=== PATIENT | male | born 1960 | race Caucasian/White ===

== ENCOUNTER 2018-08-16 18:19 | Emergency (ER) | payer OTHER ==
--- NOTE | 2018-08-16 18:30 | ER Report ---
History and Physical Time Seen By MD: 18:29 HPI/ROS CHIEF COMPLAINT: Abdominal pain, no bowel movement since HISTORY OF PRESENT ILLNESS: Patient is a 58-year-old male here with complaints of constipation, abdominal cramping with last bowel movement reported to be on . Patient denies prior history of bowel obstructions. Patient did take magnesium citrate today without relief. Patient is tolerating oral intake without issues. He does have some nausea without vomiting. Denies fevers or chills REVIEW OF SYSTEMS: Constitutional: No fever, no chills. Eyes: No discharge. ENT: No sore throat. Cardiovascular: No chest pain, no palpitations. Respiratory: No cough, no shortness of breath. Gastrointestinal: + Diffuse cramping abdominal pain without rebound or guarding, no vomiting.+ Nausea Genitourinary: No hematuria. Musculoskeletal: No back pain. Skin: No rashes. Neurological: No headache. Allergies: Coded Allergies: No Known Drug Allergies (Unverified , 08/16/18) Home Meds Reported Medications Multivitamin (DAILY VITAMIN) 1 Each Tablet, 1 EACH PO DAILY 01/04/13 Hx Smoking: No Hx Substance Use Disorder: No Hx Alcohol Use: No Constitutional Vital Sign - Last 24 Hours 08/16/18 08/16/18 08/16/18 08/16/18 18:26 18:29 18:35 18:49 Temp 98.3 Pulse 77 70 Resp 20 B/P (MAP) 152/85 152/85 (107) 146/101 (116) Pulse Ox 88 88 O2 Delivery Room Air 08/16/18 08/16/18 08/16/18 08/16/18 19:00 19:30 19:49 20:00 Pulse 75 77 B/P (MAP) 151/98 (115) 152/96 (114) 150/102 (118) Pulse Ox 89 90 08/16/18 08/16/18 08/16/18 08/16/18 20:00 20:21 20:21 22:03 B/P (MAP) 150/102 (118) 160/87 (111) 160/87 (111) 150/97 (114) Pulse Ox 88 Physical Exam General Appearance: The patient is alert, has no immediate need for airway protection and no signs of toxicity. No acute distress Eyes: Pupils equal and round no pallor or injection. ENT, Mouth: Mucous membranes are moist. Respiratory: There are no retractions, lungs are clear to auscultation. Cardiovascular: Regular rate and rhythm. Gastrointestinal: Abdomen is soft + mild diffuse tenderness on palpation without rebound or guarding Neurological: No focal neurological deficits Skin: Warm and dry, no rashes. Musculoskeletal: Neck is supple non tender. Extremities are nontender, nonswollen and have full range of motion. DIFFERENTIAL DIAGNOSIS: After history and physical exam differential diagnosis was considered for abdominal pain including but not limited to appendicitis, cholecystitis, gastritis and urinary tract infection. Constipation, bowel obst ruction Medical Decision Making Data Points Result Diagram: 08/16/18 1833 08/16/18 1833 Laboratory Hematology Test 08/16/18 18:33 08/16/18 19:02 Red Blood Count 5.95 M/uL (4.00-5.60) Mean Corpuscular Volume 87.3 fL (80.0-96.0) Mean Corpuscular Hemoglobin 29.5 pg (26.0-33.0) Mean Corpuscular Hemoglobin Concent 33.8 g/dL (32.0-36.0) Red Cell Distribution Width 13.2 % (11.5-14.5) Mean Platelet Volume 8.1 fL (7.2-11.1) Neutrophils (%) (Auto) 61.8 % (39.4-72.5) Lymphocytes (%) (Auto) 21.8 % (17.6-49.6) Monocytes (%) (Auto) 14.2 % (4.1-12.4) Eosinophils (%) (Auto) 1.6 % (0.4-6.7) Basophils (%) (Auto) 0.6 % (0.3-1.4) Nucleated RBC Relative Count (auto) 0.1 /100WBC Neutrophils # (Auto) 3.3 K/uL (2.0-7.4) Lymphocytes # (Auto) 1.2 K/uL (1.3-3.6) Monocytes # (Auto) 0.8 K/uL (0.3-1.0) Eosinophils # (Auto) 0.1 K/uL (0.0-0.5) Basophils # (Auto) 0.0 K/uL (0.0-0.1) Nucleated RBC Absolute Count (auto) 0.01 K/uL Sodium Level 141 mmol/L (137-145) Potassium Level 4.0 mmol/L (3.5-5.0) Chloride Level 103 mmol/L (98-107) Carbon Dioxide Level 27 mmol/L (22-30) Blood Urea Nitrogen 10 mg/dl (9-21) Creatinine 1.00 mg/dl (0.66-1.25) Glomerular Filtration Rate Calc > 60.0 Random Glucose 88 mg/dl (75-110) Calcium Level 9.3 mg/dl (8.4-10.2) Total Bilirubin 1.1 mg/dl (0.2-1.3) Aspartate Amino Transf (AST/SGOT) 24 U/L (0-35) Alanine Aminotransferase (ALT/SGPT) 28 U/L (0-56) Alkaline Phosphatase 77 U/L (0-126) Total Protein 7.6 g/dl (6.3-8.2) Albumin 4.7 g/dl (3.5-5.0) Lipase 56 U/L (23-300) Lactate 0.8 mmol/L (0.7-2.1) Chemistry Test 08/16/18 18:33 08/16/18 19:02 White Blood Count 5.4 k/uL (4.5-11.0) Red Blood Count 5.95 M/uL (4.00-5.60) Hemoglobin 17.6 g/dL (14.0-18.0) Hematocrit 51.9 % (42.0-52.0) Mean Corpuscular Volume 87.3 fL (80.0-96.0) Mean Corpuscular Hemoglobin 29.5 pg (26.0-33.0) Mean Corpuscular Hemoglobin Concent 33.8 g/dL (32.0-36.0) Red Cell Distribution Width 13.2 % (11.5-14.5) Platelet Count 301 K/uL (150-450) Mean Platelet Volume 8.1 fL (7.2-11.1) Neutrophils (%) (Auto) 61.8 % (39.4-72.5) Lymphocytes (%) (Auto) 21.8 % (17.6-49.6) Monocytes (%) (Auto) 14.2 % (4.1-12.4) Eosinophils (%) (Auto) 1.6 % (0.4-6.7) Basophils (%) (Auto) 0.6 % (0.3-1.4) Nucleated RBC Relative Count (auto) 0.1 /100WBC Neutrophils # (Auto) 3.3 K/uL (2.0-7.4) Lymphocytes # (Auto) 1.2 K/uL (1.3-3.6) Monocytes # (Auto) 0.8 K/uL (0.3-1.0) Eosinophils # (Auto) 0.1 K/uL (0.0-0.5) Basophils # (Auto) 0.0 K/uL (0.0-0.1) Nucleated RBC Absolute Count (auto) 0.01 K/uL Glomerular Filtration Rate Calc > 60.0 Calcium Level 9.3 mg/dl (8.4-10.2) Total Bilirubin 1.1 mg/dl (0.2-1.3) Aspartate Amino Transf (AST/SGOT) 24 U/L (0-35) Alanine Aminotransferase (ALT/SGPT) 28 U/L (0-56) Alkaline Phosphatase 77 U/L (0-126) Total Protein 7.6 g/dl (6.3-8.2) Albumin 4.7 g/dl (3.5-5.0) Lipase 56 U/L (23-300) Lactate 0.8 mmol/L (0.7-2.1) EKG/Imaging Imaging Location: [facility] - [place] Patient: Taurus Baum : 1960 Visit/Account:[id number] [facility] [place] [facility] EXAMINATION: CT abdomen and pelvis with IV contrast HISTORY: Abdominal pain. No bowel movement for one week. Possible bowel obstru ction. TECHNIQUE: Axial CT images of the abdomen and pelvis were obtained with IV contrast, with coronal and sagittal 2D reconstructed images. One of the following dose optimization techniques was utilized in the performance of this exam: Automated exposure control; adjustment of the mA and/or kV according to the patient's size; or use of an iterative reconstruction technique. Specific details can be referenced in the facility's radiology CT exam operational policy. Contrast: 75 mL of IV Isovue-370. COMPARISON: None. FINDINGS: Liver: Negative. Gallbladder and bile ducts: Negative. Spleen: Negative. Pancreas: Negative. Adrenal glands: Negative. Kidneys: No urinary calculi or hydronephrosis. The kidneys enhance normally. A subcentimeter hypodensity in the right kidney likely represents a small cyst. Bowel and peritoneum: There is a large amount of stool along the descending and sigmoid colon. The distal sigmoid colon measures 5.2 cm with some hard-appearing stool. No wall thickening or CT evidence of an underlying obstructing lesion. There is mild dilatation of the transverse and descending colon. The transverse colon measures 6.1 cm with layering liquid stool and air. The proximal descending colon measures up to 6.0 cm with layering liquid stool and air. The right colon is normal in caliber with a moderate amount of liquid stool. Small bowel loops are normal in caliber. No free fluid or free intraperitoneal air. Pelvic structures: Negative. Lymph node assessment: Negative. Vessels: Negative. Musculoskeletal: Negative. Body wall: Negative. Lung bases: Negative. IMPRESSION: 1. Large amount of stool throughout the colon with mild dilatation of the transverse and descending colon. There is some hard-appearing stool in the distal sigmoid colon. Findings may represent constipation with distal fecal impaction and upstream colonic obstruction. There is no specific CT evidence of an underlying obstructing colonic mass. 2. Small bowel loops are unremarkable by CT. 3. No other acute intra-abdominal findings. ED Course/Re-evaluation ED Course Patient is a 58-year-old male here with complaints of diffuse cramping abdominal pain, no bowel movement since in spite of taking magnesium citrate. CT imaging showed no discrete obstruction however patient was noted to have a large stool burden. Labs are unremarkable, lactate was normal. Patient was given Zofran, enema with evacuation of some stool. Patient was recommended to take MiraLAX, use Fleet enema at home. Recommend close PCP follow-up. Patient was stable at time of discharge. Return precautions provided. Decision to Disposition Date: Aug 16, 2018 Decision to Disposition Time: 20:12 Depart Departure Latest Vital Signs Vital Signs Date Time Temp Pulse Resp B/P (MAP) Pulse Ox O2 Delivery O2 Flow Rate FiO2 08/16/18 22:03 150/97 (114) 08/16/18 20:21 88 08/16/18 20:00 77 08/16/18 18:26 98.3 20 Room Air Impression: Primary Impression: Constipation by delayed colonic transit Condition: Improved Disposition: HOME OR SELF-CARE Referrals: HARPER MERRITT (PCP) Patient Instructions: Constipation (ED) Additional Instructions: Please drink plenty of water. Please take miralax and consider using [id number] fleet enema in order to promote stool evacuation. Your found to have a significant amount of stool in the colon. If these treatments fail to evacuate stool, return immediately especially if you develop worsening abdominal pain, nausea, vomiting, inability to keep down food or fluids. Please follow-up with your family doctor in the next 24-48 hours. ZAYNAB HAYES DO Aug 16, 2018 18:30
[2018-08-16 18:54] LABS: PLATELET COUNT, AUTOMATED 301 K/uL (150-450)
[2018-08-16] MEDS ORDERED: IOPAMIDOL 76% 100 ML INFUS BTL 100 ML ONE (19:23)
--- NOTE | 2018-08-16 19:55 | RADIOLOGY IMAGING REPORT ---
FACILITY: [facility] PATIENT NAME: Taurus Baum : 1960 MR: [id number] V: [id number] EXAM DATE: ORDERING PHYSICIAN: ZAYNAB HAYES TECHNOLOGIST: Location: [facility] Patient: Taurus Baum : 1960 Visit/Account:[id number] Date of Sevice: 08/16/2018 EXAMINATION: CT abdomen and pelvis with IV contrast HISTORY: Abdominal pain. No bowel movement for one week. Possible bowel obstruction. TECHNIQUE: Axial CT images of the abdomen and pelvis were obtained with IV contrast, with coronal a nd sagittal 2D reconstructed images. One of the following dose optimization techniques was utilized in the performance of this exam: Autom ated exposure control; adjustment of the mA and/or kV according to the patient's size; or use of an i terative reconstruction technique. Specific details can be referenced in the facility's radiology C T exam operational policy. Contrast: 75 mL of IV Isovue-370. COMPARISON: None. FINDINGS: Liver: Negative. Gallbladder and bile ducts: Negative. Spleen: Negative. Pancreas: Negative. Adrenal glands: Negative. Kidneys: No urinary calculi or hydronephrosis. The kidneys enhance normally. A subcentimeter hypoden sity in the right kidney likely represents a small cyst. Bowel and peritoneum: There is a large amount of stool along the descending and sigmoid colon. The d istal sigmoid colon measures 5.2 cm with some hard-appearing stool. No wall thickening or CT evidence of an underlying obstructing lesion. There is mild dilatation of the transverse and descending colon . The transverse colon measures 6.1 cm with layering liquid stool and air. The proximal descending co mita measures up to 6.0 cm with layering liquid stool and air. The right colon is normal in caliber wi th a moderate amount of liquid stool. Small bowel loops are normal in caliber. No free fluid or free intraperitoneal air. Pelvic structures: Negative. Lymph node assessment: Negative. Vessels: Negative. Musculoskeletal: Negative. Body wall: Negative. Lung bases: Negative. IMPRESSION: 1. Large amount of stool throughout the colon with mild dilatation of the transverse and descending c olon. There is some hard-appearing stool in the distal sigmoid colon. Findings may represent constipa tion with distal fecal impaction and upstream colonic obstruction. There is no specific CT evidence o f an underlying obstructing colonic mass. 2. Small bowel loops are unremarkable by CT. 3. No other acute intra-abdominal findings. Report Dictated By: Julian Jennings MD at 08/16/2018 7:40 PM Report E-Signed By: Julian Jennings MD at 08/16/2018 7:51 PM WSN:[id number]
[2018-08-16] MEDS ORDERED: MAGNESIUM CITRATE 300 ML BTL PO ONE (20:15)
[2018-08-16] MEDS ORDERED: ONDANSETRON 4 MG ODT TABDP SL ONE (22:00)
[2018-08-16 22:03] VITALS: BP 150/97
== END 2018-08-16 22:24 | disposition home or self-care (01) ==
LOC: ER 18:37
DX: K59.01 Slow transit constipation (principal)
CPT/HCPCS: 36415; 74177; 83605; 83690; 85025; 99284; Q9967; S0119; 82040; 82247; 82310; 82374; 82435; 82565; 82947; 84075; 84132; 84155; 84295; 84450; 84460; 84520

== ENCOUNTER → 2018-08-16 | Outpatient (CLI) | payer OTHER ==
[~2018-08-16] MED LIST: MULT-885 PO
--- NOTE | 2018-08-16 15:05 | RADIOLOGY IMAGING REPORT ---
FACILITY[place] [facility] [place]IENT NAME: Taurus Baum : 1960 MR: [id number] V: [id number] EXAM DATE: ORDERING PHYSICIAN: TARIQ SMITH TECHNOLOGIST: Location: [facility] [place] Patient: Taurus Baum : 1960 Visit/Account:[id number] Date of Sevice: 08/16/2018 ABDOMEN AP ERECT AND/OR DECUB HISTORY: Constipation x7 days. Left lower quadrant ache. Additional history: None COMPARISON: None. FINDINGS: There is a prominent amount of fecal material seen through the descending colon and rectosigmoid colo n. The proximal colon is nondistended. Colonic Air-fluid levels noted on the upright view. Small b owel unremarkable. IMPRESSION: Prominent colonic fecal retention through the distal half of the colon. Air-fluid levels in nondiste nded proximal colon raises possibility of colonic ileus Report Dictated By: Crow Das MD at 08/16/2018 2:59 PM Report E-Signed By: Crow Das MD at 08/16/2018 3:01 PM WSN:[id number]
== END ==
LOC: RAD 13:59
PROVIDERS: ATTEND Nurse Practitioner Family
DX: R10.9 Unspecified abdominal pain (principal)
CPT/HCPCS: 74019

== ENCOUNTER → 2018-08-20 | Outpatient (CLI) | payer OTHER ==
--- NOTE | 2018-08-20 12:56 | RADIOLOGY IMAGING REPORT ---
FACILITY: [facility] PATIENT NAME: Taurus Baum : 1960 MR: [id number] V: [id number] EXAM DATE: ORDERING PHYSICIAN: TARIQ SMITH TECHNOLOGIST: Location: [facility] - [place] Patient: Taurus Baum : 1960 Visit/Account:[id number] Date of Sevice: 08/20/2018 Exam type: ABDOMEN AP ERECT AND/OR DECUB History: Constipation x7 days, left lower quadrant dull ache intermittently Comparison: August 16, 2018. Findings: Fewer air-fluid levels are now identified in the colon when compared to the prior study. Less fecal material also noted in the distal half of the colon. No gross evidence of free intra-peritoneal air although the diaphragms are not included on the study. No evidence of organomegaly. Visual as bones are unremarkable for age IMPRESSION: 1. Less fecal material seen in the distal colon when compared to the prior study. Fewer air fluid l evels are now identified within the colon Report Dictated By: Marina Simms MD at 08/20/2018 12:49 PM Report E-Signed By: Marina Simms MD at 08/20/2018 12:51 PM WSN:[email or web address]
== END ==
LOC: LAB 12:11
PROVIDERS: ATTEND Nurse Practitioner Family
DX: R10.9 Unspecified abdominal pain (principal); R19.7 Diarrhea, unspecified
CPT/HCPCS: 36415; 74019; 82040; 82247; 82310; 82374; 82435; 82565; 82947; 83735; 84075; 84132; 84155; 84295; 84450; 84460; 84520

== ENCOUNTER 2018-09-11 18:24 | Inpatient (IN) | payer OTHER ==
[~2018-09-11] VITALS: Ht 167.6 cm; Wt 68.0 kg
[2018-09-11] MEDS ORDERED: NS(*) 0.9% 1000 ML BAG 1,000 ML IV ONE (19:00)
[2018-09-11] MEDS ORDERED: ONDANSETRON 4 MG/2 ML VIAL IVP ONE ×2 (19:00→22:10)
[2018-09-11 19:15] LABS: PLATELET COUNT, AUTOMATED 265 K/uL (150-450)
--- NOTE | 2018-09-11 19:18 | ER Report ---
History and Physical Time Seen By MD: 18:35 Hx. of Stated Complaint: ABD PAIN HPI/ROS CHIEF COMPLAINT: Abdominal pain and distention HISTORY OF PRESENT ILLNESS: Patient presents with abdominal distention. He has had one month of intermittent constipation that he had not previously experienced. He was seen on August 16 and noted to have stool but without evidence of obstruction. He took mag citrate and enemas and was improved for one week, however for the past 2 weeks has had constipation. His last bowel movement was 7 days ago. He was initially able to pass gas until today. He complains of increasing nausea and has had dry heaves today, vomiting times once. His primary care physician on put him on a clear liquid plus diet. He has not been able to tolerate much food. He has not eaten today. He had said a half a cup of coffee and sips of water today. He complains of pain throughout the abdomen that is severe. He has intermittent crankiness. Pain is constant. He has not had prior abdominal surgery. He has no known intestinal problems other than internal hernia. He denies black stools, though states that with the last enema he did notice a bit of blood with stool. He has no known family hx of bowel pathology. Takes no meds. Has not had any narcotic in 2 yrs (medically rx'd in past). No recent tobac/etoh/drugs. REVIEW OF SYSTEMS: Constitutional: No fever, no chills. Eyes: no blurred vision ENT: No sore throat. Cardiovascular: No chest pain, no palpitations. Respiratory: No cough, no shortness of breath. Gastrointestinal: above Genitourinary: no dysuria, change in urination Musculoskeletal: No back pain. Skin: No rashes. Neurological: No headache. Remainder of the 14 system rev: Yes Allergies: Coded Allergies: No Known Drug Allergies (Unverified , 09/11/18) Home Meds Discontinued Reported Medications Multivitamin (DAILY VITAMIN) 1 Each Tablet, 1 EACH PO DAILY 01/04/13 Reviewed Nurses Notes: Yes Old Medical Records Reviewed: Yes Hx Smoking: No Hx Substance Use Disorder: No Hx Alcohol Use: No Constitutional Vital Sign - Last 24 Hours 09/11/18 09/11/18 09/11/18 09/11/18 18:33 18:35 18:39 18:54 Temp 98.3 Pulse 105 95 93 Resp 14 B/P (MAP) 135/92 Pulse Ox 87 94 95 O2 Delivery Room Air O2 Flow Rate 2.0 09/11/18 09/11/18 09/11/18 09/11/18 19:00 19:09 19:24 19:30 Pulse 91 94 B/P (MAP) 148/89 (108) 143/82 (102) Pulse Ox 93 93 09/11/18 09/11/18 09/11/18 09/11/18 19:39 19:54 20:00 20:09 Pulse 96 89 89 B/P (MAP) 145/55 (85) Pulse Ox 92 92 95 09/11/18 09/11/18 09/11/18 09/11/18 20:14 20:44 20:59 21:00 Pulse 84 88 87 B/P (MAP) 147/87 (107) Pulse Ox 94 94 94 09/11/18 09/11/18 09/11/18 09/11/18 21:14 21:29 21:30 21:44 Pulse 97 93 102 B/P (MAP) 120/101 (107) Pulse Ox 94 93 95 09/11/18 09/11/18 09/11/18 09/11/18 21:59 22:00 22:05 22:20 Pulse 93 94 97 B/P (MAP) 136/75 (95) Pulse Ox 96 95 94 09/11/18 09/11/18 09/11/18 09/11/18 22:30 22:35 22:50 23:00 Pulse 100 106 B/P (MAP) 141/83 (102) 153/93 (113) Pulse Ox 94 94 09/11/18 09/11/18 09/11/18 09/11/18 23:05 23:20 23:30 23:35 Pulse 102 102 98 B/P (MAP) 134/89 (104) Pulse Ox 94 95 94 09/11/18 09/12/18 09/12/18 23:50 00:00 00:05 Pulse 108 108 B/P (MAP) 135/94 (108) Pulse Ox 92 Intake and Output0 09/11/18 09/11/18 09/12/18 14:59 22:59 06:59 Intake Total 1000 ml Output Total 50 ml Balance 1000 ml -50 ml Physical Exam General Appearance: The patient is alert, has no immediate need for airway protection and no signs of toxicity. Eyes: Pupils equal and round no pallor or injection. ENT, Mouth: Mucous membranes are moist. Respiratory: There are no retractions, lungs are clear to auscultation. Cardiovascular: Regular rate and rhythm. Gastrointestinal: Abdomen is moderately distended. He has mild tenderness in all 4 quadrants without peritoneal signs. He has bowel sounds present in all 4 quadrants. Rectal exam shows no stool in the vault. No significant prostate hypertrophy. Of note, there is positive with gross blood and small rectal fissure at 6:00. Neurological: alert, oriented, moves all ext, no focal deficits Skin: Warm and dry, no rashes. Musculoskeletal: Extremities are nontender, nonswollen and have full range of motion. DIFFERENTIAL DIAGNOSIS: After history and physical exam differential diagnosis was considered for abdominal pain including but not limited to obstruction, mass, appendicitis, cholecystitis, gastritis and urinary tract infection. Medical Decision Making Data Points Result Diagram: 09/11/18 1900 09/11/18 190 Laboratory Hematology Test 09/11/18 19:00 Red Blood Count 5.93 M/uL (4.00-5.60) Mean Corpuscular Volume 86.1 fL (80.0-96.0) Mean Corpuscular Hemoglobin 29.3 pg (26.0-33.0) Mean Corpuscular Hemoglobin Concent 34.0 g/dL (32.0-36.0) Red Cell Distribution Width 13.4 % (11.5-14.5) Mean Platelet Volume 8.2 fL (7.2-11.1) Neutrophils (%) (Auto) 76.7 % (39.4-72.5) Lymphocytes (%) (Auto) 13.0 % (17.6-49.6) Monocytes (%) (Auto) 9.2 % (4.1-12.4) Eosinophils (%) (Auto) 0.6 % (0.4-6.7) Basophils (%) (Auto) 0.5 % (0.3-1.4) Nucleated RBC Relative Count (auto) 0.1 /100WBC Neutrophils # (Auto) 5.5 K/uL (2.0-7.4) Lymphocytes # (Auto) 0.9 K/uL (1.3-3.6) Monocytes # (Auto) 0.7 K/uL (0.3-1.0) Eosinophils # (Auto) 0.0 K/uL (0.0-0.5) Basophils # (Auto) 0.0 K/uL (0.0-0.1) Nucleated RBC Absolute Count (auto) 0.01 K/uL Sodium Level 138 mmol/L (137-145) Potassium Level 3.8 mmol/L (3.5-5.0) Chloride Level 102 mmol/L (98-107) Carbon Dioxide Level 24 mmol/L (22-30) Blood Urea Nitrogen 9 mg/dl (9-21) Creatinine 0.90 mg/dl (0.66-1.25) Glomerular Filtration Rate Calc > 60.0 Random Glucose 83 mg/dl (75-110) Calcium Level 9.1 mg/dl (8.4-10.2) Magnesium Level 2.0 mg/dl (1.7-2.2) Total Bilirubin 1.1 mg/dl (0.2-1.3) Aspartate Amino Transf (AST/SGOT) 20 U/L (0-35) Alanine Aminotransferase (ALT/SGPT) 30 U/L (0-56) Alkaline Phosphatase 72 U/L (0-126) Total Protein 7.2 g/dl (6.3-8.2) Albumin 4.4 g/dl (3.5-5.0) Chemistry Test 09/11/18 19:00 White Blood Count 7.1 k/uL (4.5-11.0) Red Blood Count 5.93 M/uL (4.00-5.60) Hemoglobin 17.4 g/dL (14.0-18.0) Hematocrit 51.1 % (42.0-52.0) Mean Corpuscular Volume 86.1 fL (80.0-96.0) Mean Corpuscular Hemoglobin 29.3 pg (26.0-33.0) Mean Corpuscular Hemoglobin Concent 34.0 g/dL (32.0-36.0) Red Cell Distribution Width 13.4 % (11.5-14.5) Platelet Count 265 K/uL (150-450) Mean Platelet Volume 8.2 fL (7.2-11.1) Neutrophils (%) (Auto) 76.7 % (39.4-72.5) Lymphocytes (%) (Auto) 13.0 % (17.6-49.6) Monocytes (%) (Auto) 9.2 % (4.1-12.4) Eosinophils (%) (Auto) 0.6 % (0.4-6.7) Basophils (%) (Auto) 0.5 % (0.3-1.4) Nucleated RBC Relative Count (auto) 0.1 /100WBC Neutrophils # (Auto) 5.5 K/uL (2.0-7.4) Lymphocytes # (Auto) 0.9 K/uL (1.3-3.6) Monocytes # (Auto) 0.7 K/uL (0.3-1.0) Eosinophils # (Auto) 0.0 K/uL (0.0-0.5) Basophils # (Auto) 0.0 K/uL (0.0-0.1) Nucleated RBC Absolute Count (auto) 0.01 K/uL Glomerular Filtration Rate Calc > 60.0 Calcium Level 9.1 mg/dl (8.4-10.2) Magnesium Level 2.0 mg/dl (1.7-2.2) Total Bilirubin 1.1 mg/dl (0.2-1.3) Aspartate Amino Transf (AST/SGOT) 20 U/L (0-35) Alanine Aminotransferase (ALT/SGPT) 30 U/L (0-56) Alkaline Phosphatase 72 U/L (0-126) Total Protein 7.2 g/dl (6.3-8.2) Albumin 4.4 g/dl (3.5-5.0) ED Course/Re-evaluation ED Course Pt presents with finidngs concerning for bowel obstruction. CT shows Distended, ileus, < 9 cm; fluid levels, focal wall thickening distal descending colon. Cornell parviz, symptoms are c/w obstruction. I consulted Dr. Gao for evaluation for admission; requests NG tube and will admit for surgical repair. Pt HD stable on admission. Decision to Disposition Date: Sep 11, 2018 Decision to Disposition Time: 21:30 Depart Departure Latest Vital Signs Vital Signs Date Time Temp Pulse Resp B/P (MAP) Pulse Ox O2 Delivery O2 Flow Rate FiO2 09/12/18 00:05 108 09/12/18 00:00 135/94 (108) 09/11/18 23:50 92 09/11/18 18:35 2.0 09/11/18 18:33 98.3 14 Room Air Impression: Primary Impression: Colon obstruction Condition: Improved Disposition: Admitted from ER Referrals: HARPER MERRITT (PCP) HARLEEN WELLS MD Sep 11, 2018 19:18
[2018-09-11] MEDS ORDERED: IOPAMIDOL 76% 150 ML INFUS BTL 150 ML ONE (19:23)
[2018-09-11] MEDS ORDERED: PROMETHAZINE 25 MG/ML 1 ML AMP IVP ONE (19:30)
[2018-09-11] MEDS ORDERED: DIATRIZOATE MEGL/DIATRIZOA SOD 367 MG/ML SOLN ONE (19:40)
[2018-09-11] MEDS ORDERED: fentaNYL CITR 100 MCG/2 ML AMP IVP ONE (20:45)
--- NOTE | 2018-09-11 21:18 | RADIOLOGY IMAGING REPORT ---
FACILITY: [facility] - [place] PATIENT NAME: Taurus Baum : 1960 MR: [id number] V: [id number] EXAM DATE: ORDERING PHYSICIAN: HARLEEN WELLS TECHNOLOGIST: [place] [facility] [place] Ba[place] : 1960 Visit/Account:[id number] Date of Sevice: 09/11/2018 CT abdomen and pelvis with IV contrast Indication: Abdominal pain and distention. Comparison: 08/16/2018.. Technique: Axial CT images were obtained through the abdomen and pelvis during injection of nonioni c iodinated intravenous contrast. Reformatted coronal and sagittal images were also obtained. One of the following dose optimization techniques was utilized in the performance of this exam: Autom ated exposure control; adjustment of the mA and/or kV according to the patient's size; or use of an i terative reconstruction technique. Specific details can be referenced in the facility's radiology C T exam operational policy. Contrast: 75 ml of Isovue-370 IV contrast. Findings: Lower lung branch: Limited views lower lung field are unremarkable. Liver: No focal parenchymal abnormality of the liver. Biliary: Gallbladder appears unremarkable as well as the intra and extra hepatic biliary system. Pancreas: No focal abnormality. Spleen: Normal appearance. Adrenal glands: Unremarkable. Kidneys / retroperitoneum: No evidence of nephrolithiasis or hydronephrosis. Right kidney again shows a subcentimeter hypodensities likely small cyst. This is unchanged. No solid renal lesions. Bowel / peritoneum / mesenteries: The signal colon is mainly decompressed unremarkable. The distal de scending colon does show a small focal area of luminal narrowing and wall thickening. Proximal to thi s region the colon shows distention correlate to the cecum. No other focal abnormality is identified in the colon. The appendix is normal. Small bowel shows no focal abnormality or obstruction. The stom ach is distended however there is contrast within the lumen and contrast passes from the stomach into the small bowel. No focal abnormality of the stomach. No free air, fluid collections or areas of inflammation. Small amount of free fluid seen in the pelvi s. Small umbilical hernia containing fat. Lymph node assessment: No pathologic adenopathy identified. Pelvic structures: Appear unremarkable. Vessels: No significant atherosclerotic calcifications seen throughout a nonaneurysmal abdominal aort a and branches. Musculoskeletal / Body wall: No acute or aggressive osseous abnormality. Is mild degenerative changes spine. IMPRESSION: 1. There is distention of the colon from the cecum to the distal descending colon. In this region the distal descending colon there is a focal area of luminal narrowing and wall thickening. No surroundi ng inflammation. Cannot exclude a colonic lesion. This is likely the cause of the colonic distention. Suggest colonoscopy for further evaluation. 2. Small amount of free fluid seen in the pelvis. 3. Other chronic stable findings as above. I called report to HARLEEN WELLS at 09/11/2018 9:12 PM. Report Dictated By: Cem Connolly at 09/11/2018 8:54 PM Report E-Signed By: Cem Connolly at 09/11/2018 9:14 PM WSN:[id number]
[2018-09-11] MEDS ORDERED: FAMOTIDINE(*) 20MG/50ML PREMIX 50 ML IVPB ONE (22:35)
[2018-09-11] MEDS ORDERED: MIDAZOLAM 2 MG/2 ML VIAL IVP ONE (23:10)
--- NOTE | 2018-09-11 23:19 | Gen Surgery History & Physical ---
History of Present Illness Chief Complaint abd pain, vomiting, constipation History of Present Illness 58 yo m with vomiting and abd pain that began about 1 mo ago. he has had some llq tenderness for a couple months. he was constipated at that time but that resolved for about 1.5 wks after taking laxatives. the symptoms recently returned. last normal bm was 1 wk ago. very small bm a day ago with enemas/laxatives. minimal blood in stool. passed flatus this am. no night sweats or fever. some wt loss due to recent liquid diet. no colonoscopy in the past. pmh/psh: carpal tunnel surgery fam hx: stomach ca, great gma had colon ca social hx: cigs and etoh History Home Meds Discontinued Reported Medications Multivitamin (DAILY VITAMIN) 1 Each Tablet, 1 EACH PO DAILY 01/04/13 Allergies: Coded Allergies: No Known Drug Allergies (Unverified , 09/11/18) Review of Systems Constitutional: Other (per hpi) Exam General Appearance: Alert, Awake, No Acute Distress, Other (vomited during the h&p) Neuro: No Gross deficits Eyes: Other (per, eomi) ENT: Moist Mucous Membranes Neck: No Masses Cardiovascular: Other (mildy tachycardic) Respiratory: No Respiratory Distress GI: Other (soft, moderated distention) Extremities: Other (no pitting edema) Integumentary: Skin Intact without Lesion / Mass Psych: Alert & Oriented X3, Appropriate Mood & Affect Medical Decision Making Data Points Result Diagram: 09/11/18 1900 09/11/18 1900 Assessment and Plan Problems: (1) Colon obstruction Assessment & Plan: 09/11/18: symptoms for about 1 mo. now colon obstruction with dilated colon and possible mass in descending colon. vomiting. discussed options with the pt. pt would like to wait until the morning before surgery. npo, ngt, in am - sigmoidoscopy, ex lap, partial colon resection, possible ostomy Copies to: HARPER MERRITT ; Venous Thromboembolism Antithrombotics Is Pt On Any Antithrombotics?: ALAN Woodard Sep 11, 2018 23:19
[2018-09-12] VITALS (17 sets, daily range): BP systolic 109–137; BP diastolic 66–98; Ht 167.6 cm; Wt 68.0 kg
[2018-09-12] MEDS ORDERED: MORPHINE 4 MG/ML SDV IVP PRN (00:45)
[2018-09-12] MEDS ORDERED: ONDANSETRON 4 MG/2 ML VIAL IVP PRN (00:45)
[2018-09-12] MEDS ORDERED: NS(*) 0.9% 1000 ML BAG 1,000 ML IV ONE (00:45)
--- NOTE | 2018-09-12 01:03 | RADIOLOGY IMAGING REPORT ---
FACILITY: [facility] PATIENT NAME: Taurus Baum : 1960 MR: [id number] V: [id number] EXAM DATE: ORDERING PHYSICIAN: HARLEEN WELLS TECHNOLOGIST: Location: Patient: Taurus Baum : 1960 Visit/Account:[id number] Date of Sevice: 09/11/2018 CHEST SINGLE AP COMPARISONS: 2 view chest dated December 20, 2015 ADDITIONAL PERTINENT HISTORY: Post NG tube placement FINDINGS: Life-support: NG tube with its tip in the proximal portion of the stomach. Cardiomediastinal silhouette: Negative. Pulmonary vasculature: Negative. Lung branch: Minimal right basilar atelectatic change. Pleural spaces: Negative. Osseous structures: Negative. Surrounding soft tissues: Negative. IMPRESSION: 1. NG tube in good position. 2. Mild right basilar atelectatic change. Report Dictated By: Regis Rosales MD at 09/12/2018 12:59 AM Report E-Signed By: Regis Rosales MD at 09/12/2018 1:00 AM WSN:[id number]
[2018-09-12] MEDS ORDERED: NORMOSOL R SOLN(*) 1000 ML BAG 1,000 ML IV ONE (01:56)
[2018-09-12] MEDS ORDERED: BENZOCAINE/TETRACAINE/BUTAMBEN TOP PRN (02:35)
--- NOTE | 2018-09-12 03:39 | RADIOLOGY IMAGING REPORT ---
FACILITY: [facility] - [place] PATIENT NAME: Taurus Baum : 1960 MR: [id number] V: [id number] EXAM DATE: ORDERING PHYSICIAN: HARLEEN WELLS TECHNOLOGIST: Location: [facility] [place] Patient: Taurus Baum : 1960 Visit/Account:[id number] Date of Sevice: 09/11/2018 Portable chest: Indication: NG tube placement. Technique: A single frontal image was obtained. Comparison: 09/11/2018 Lines and tubes: The tip of the NG tube is in the stomach Skeletal and soft tissue structures: Intact and unremarkable. Heart and mediastinum: Within normal limits. Lung branch: Well-expanded. There is persistent linear opacity at the right base, compatible with ate lectasis. No new focal findings. Pleural spaces: Unremarkable. Impression: The NG tube is in the stomach. There is persistent linear atelectasis at the right lung b ase. Report Dictated By: Kash Quintero MD at 09/12/2018 3:33 AM Report E-Signed By: Kash Quintero MD at 09/12/2018 3:35 AM WSN:[id number]
[2018-09-12] MEDS ORDERED: PANTOPRAZOLE SOD 40 MG IV VIAL IVP ONE (04:00)
[2018-09-12] MEDS ORDERED: PROPOFOL EMUL(*) 10MG/ML 20 ML 20 ML ONE (04:12)
[2018-09-12] MEDS ORDERED: ROCURONIUM BROM 10 MG/ML 10 ML ONE (04:12)
[2018-09-12] MEDS ORDERED: ONDANSETRON 4 MG/2 ML VIAL ONE (04:12)
[2018-09-12] MEDS ORDERED: LIDOCAINE MPF 1% 5 ML VIAL ONE (04:12)
[2018-09-12] MEDS ORDERED: SUCCINYLCHOL CHL 200MG/10ML VL ONE (04:13)
[2018-09-12] MEDS ORDERED: DEXAMETHASONE SOD 4 MG/ML VIAL ONE (04:20)
[2018-09-12] MEDS ORDERED: fentaNYL CITR 250 MCG/5 ML AMP ONE (04:22)
[2018-09-12] MEDS ORDERED: BUPIV/EPI 0.25% 1:200,000 50ML INFIL ONE (04:26)
[2018-09-12] MEDS ORDERED: LEVOFLOXACIN/D5W 750 MG/150 ML 150 ML IVPB ONE (04:40)
[2018-09-12] MEDS ORDERED: SUGAMMADEX SOD 200 MG/2 ML SDV ONE (04:48)
[2018-09-12] MEDS ORDERED: NS 0.9% IRRIGATION 1000ML PLCT IR ONE (06:09)
[2018-09-12] MEDS ORDERED: ACETAMINOPHEN(*)1000 MG/100 ML 100 ML IVPB ONE (06:41)
[2018-09-12] MEDS ORDERED: LIDOCAINE 2% IV 100 MG/5ML SYR ONE (07:18)
[2018-09-12] MEDS ORDERED: fentaNYL CITR 100 MCG/2 ML AMP ONE ×2 (07:56→08:18)
--- NOTE | 2018-09-12 08:39 | EKG ---
FACILITY: [facility] - [place] PATIENT NAME: ODALYS BOWER : [id number] MR: [id number] V: [id number] EXAM DATE: ORDERING PHYSICIAN: BASIM ELKINS TECHNOLOGIST: KYARA Test Reason : POST OP EKG Blood Pressure : / mmHG Vent. Rate : 096 BPM Atrial Rate : 096 BPM P-R Int : 134 ms QRS Dur : 144 ms QT Int : 432 ms P-R-T Axes : 047 194 000 degrees QTc Int : 545 ms Sinus rhythm with occasional premature ventricular complexes and fusion complexes Possible Left atrial enlargement Right bundle branch block Septal infarct , age undetermined Abnormal ECG No previous ECGs available Confirmed by Nico Jerry ([id number]) on 09/12/2018 4:17:19 PM Referred By: SEVERO Confirmed By:Nico Castorena
--- NOTE | 2018-09-12 08:40 | Post Operative Progress Note ---
Post Operative Progress Note Date: Sep 12, 2018 Time: 08:38 Surgeon: dr. loretta jeronimo Historical Guide: none Anesthesia: gen, local dr. peng Pre-Op Diagnosis: large bowel obstruction, likley malignancy Post-Op Diagnosis: same Findings: mass, colon obstruction Procedure(s): sigmoidoscopy, ex lap, hartmanns procedure Specimen Removed:(May be N/A): sigmoid, distal descending Complications: none Fluids: iv crystalloid Estimated Blood Loss: <50 ml ALAN JERONIMO Sep 12, 2018 08:40
[2018-09-12] MEDS ORDERED: metroNIDAZOLE* 500MG/100ML BAG 100 ML IVPB SCH (09:00)
[2018-09-12] MEDS ORDERED: ENOXAPARIN 40 MG/0.4ML SYR SC SCH (09:00)
[2018-09-12] MEDS ORDERED: PCA LOCKBOX KEYS XX ONE (09:25)
[2018-09-12] MEDS ORDERED: PCA LOCKBOX KEYS XX PRN (09:35)
[2018-09-12] MEDS: HYDROmorphone PCA 6 MG/30 ML IV PRN (09:38)
[2018-09-12] MEDS ORDERED: LEVOFLOXACIN/D5W*500 MG/100 ML 100 ML IVPB SCH (10:00)
--- NOTE | 2018-09-12 10:34 | OPERATIVE REPORT 1 ---
EVENT DATE: September 12, 2018 SURGEON: Honorio Gao MD ANESTHESIOLOGIST: Ez Toth MD ANESTHESIA: General. SOCCER COMMENTATOR: None. PREOPERATIVE DIAGNOSIS Colon obstruction, likely malignancy. POSTOPERATIVE DIAGNOSIS Colon obstruction, likely malignancy. PROCEDURES PERFORMED 1. Sigmoidoscopy. 2. Exploratory laparotomy. 3. Bronwyn's procedure. FLUIDS IV crystalloids. ESTIMATED BLOOD LOSS Less than 50 mL. SPECIMENS Sigmoid colon and distal descending. COMPLICATIONS None. INDICATIONS This is a 58-year old male with a history of about a month of vomiting, constipation and abdominal pain. Within that time, he had about a week where the symptoms resolved and then they returned. Last night, the patient presented to the emergency department with vomiting, pain, distention and he had not had a regular bowel movement in about one week. On physical exam, patient was stable. He was vomiting during the history and physical. He was distended. His abdomen was soft. CT scan showed findings consistent with a mass in the descending colon that was causing an obstruction. The colon proximal to this was significantly dilated. The risks and benefits of the procedure were explained and consent was signed. DESCRIPTION OF PROCEDURE Patient was taken to the operating room and placed in the supine position. General anesthesia was administered per the Anesthesia Team. A digital rectal exam and perianal exam were performed and revealed an anterior fissure. Colonoscope was then advanced through the anus into the descending colon under direct vision. There was a lesion in the descending colon. This was biopsied. I was not able to pass through this lesion with a scope. The colonoscope was removed after CO2 was suctioned. The patient was then prepped and draped in normal sterile fashion after being placed in stirrups. An incision was made from a few centimeters below the xiphoid process down to just above his pubis. Electrocautery was used to divide the subcutaneous tissue down to the fascia. The fascia was carefully opened. The peritoneum was opened and the fascial and peritoneal incision was made to match the skin incision. A significantly dilated proximal colon was identified. There was no perforation. The mass was easily palpable in the descending colon. Because the patient's nutrition had been compromised and his colon had been dilated for approximately a month, I elected to perform Bronwyn's procedure rather than primary anastomosis. A window was created in the rectosigmoid colon and a linear SACHA 75 mm blue-load was fired across the rectosigmoid colon. An incision was made along the white line of Toldt and the colon was mobilized medially. LigaSure was used to divide the mesentery near its base. A window was created in the mesocolon proximally and the descending colon was divided proximally 5 cm above the mass with a linear 75 mm blue-load stapler. Specimen was removed. The rectosigmoid stump was marked with 0 Prolene sutures x2. In order to get enough length for the ostomy, I needed to further mobilize the descending colon medially and minimally mobilize the splenic flexure. A 1.5 circular incision was made over the left rectus muscle above the umbilicus. This location was chosen because this is where the descending colon could reach without undue tension. A core of fat was removed. A cruciate incision was made in the anterior sheath. The rectus muscles were split and the posterior sheath and peritoneum were opened. This was made to accommodate two finger widths. The colon was then brought out the ostomy and held with a Brunswick. Hemostasis was assured. Omentum was placed over the intra-abdominal contents. The midline fascia was closed with a running #1 PDS stitch from each direction that was tied in the middle. Skin was approximated with staplers. Ostomy was matured with 3-0 Vicryl interrupted stitches. Three stitches had also been placed between the colon and the fascia prior to maturing the ostomy. I confirmed that the ostomy was patent. Ostomy bag was placed. Appropriate dressings were applied. Patient tolerated the procedure well. There were no complications. ARIELLE
[2018-09-12] MEDS: PIPERACILLIN/TAZO*3.375GM VIAL 3.375 GM in NS(*) 0.9% 100 ML MINI-BAG 100 ML IVPB SCH ×3 (12:31→23:32)
--- NOTE | 2018-09-12 15:32 | Medical Nutrition Therapy ---
Nutrition Anthropometrics Height (Inches): 66.00 Height (Calculated Centimeters: 167.816586 Weight (Pounds): 150 Weight (Calculated Kilograms): 68.266 Afbio Nutrition Score: Probably Inadequate Fabio Nutrition Risk Score: 19 Dietary Referral Nutrition Risk Factors: Nutrition Risk Comment: Physical Findings Physical Appearance: Skin Appearance Skin Appearance: Edema Edema Location Modifier: Edema Location: Type of Edema: Degree of Edema: Gastrointestinal Symptoms GI Symtoms: Nausea, Vomiting, Appetite Changes, Change in Bowel Pattern Tube Present: NG Bowel Sounds: Recent Bowel Pattern: No Bowel Movement Stool Characteristics: Nutritional Diagnosis Nutritional Risk Acuity 1: GI Obstruction Past Medical History: Carpal tunnel in right hand Nutritional Acuity: 1-High Nutrition Diagnosis: Inadequate Food Intake Nutrition Etiology: Physiological Causes Nutrition Problem/Etiology/Sym: Inadequate food intake related to physiological causes as evidenced by NPO/ice chips diet and GI obstruction. Energy Requirement: 1900 (MSJ, 1.1 TEF,) Protein Requirement: 68 (1g AA/kg of BW) Fluid Requirement: 1900 (1ml/kcal) Diet Type: NPO/Ice Chips Only Nutrition Intervention: Incr diet as tolerated Nutrition Monitoring & Eval RD Patient Assessment Time: [address] Assessment Type: RD Screen Patient Nutrition Acuity: 1-High Follow Up Date: Sep 14, 2018 Nutritional Comment: 09/12: Pt admitted for GI obstruction. Pt has hx of carpal tunnel in right hand. Pt is currently taking enoxaparin and has no significant labs. Pt is currently NPO/ice chips and no intake reported. Continue to monitor. -MARLEY CASTILLO Sep 12, 2018 10:07
[2018-09-12] MEDS: ENOXAPARIN 40 MG/0.4ML SYR SC SCH (19:50)
[2018-09-13 03:37] VITALS: BP 118/78
[2018-09-13] MEDS: HYDROmorphone PCA 6 MG/30 ML IV PRN ×2 (03:44→17:58)
[2018-09-13] MEDS: PIPERACILLIN/TAZO*3.375GM VIAL 3.375 GM in NS(*) 0.9% 100 ML MINI-BAG 100 ML IVPB SCH ×4 (06:10→23:20)
[2018-09-13 06:28] LABS: PLATELET COUNT, AUTOMATED 190 K/uL (150-450)
[2018-09-13 06:39] VITALS: BP 120/72
[2018-09-13] MEDS: PANTOPRAZOLE SOD 20 MG TABEC PO SCH (08:59)
--- NOTE | 2018-09-13 09:00 | General Surgery Progress Note ---
Subjective Progress Notes Subjective no acute events. stool in bag. pain controlled. chyna clears. no n/v. Physical Exam Vital Signs Date Time Temp Pulse Resp B/P (MAP) Pulse Ox O2 Delivery O2 Flow Rate FiO2 09/13/18 07:39 98 Nasal Cannula 1.5 09/13/18 06:39 98.6 85 18 120/72 (88) Intake and Output 09/13/18 07:00 Intake Total 4117 ml Output Total 2475 ml Balance 1642 ml Intake Oral 860 ml IV Total 3257 ml Output Urine Total 1800 ml Stool Total 525 ml Gastric Drainage Total 150 ml # Bowel Movements 1 General Appearance: No Acute Distress Cardiovascular: Other (reg rate) Respiratory: No Respiratory Distress GI: Other (soft, stool in bag, stoma pink) Result Diagram: 09/13/18 0557 09/13/18 0557 Assessment and Plan Problems: (1) Colon obstruction Assessment & Plan: 09/11/18: symptoms for about 1 mo. now colon obstruction with dilated colon and possible mass in descending colon. vomiting. discussed options with the pt. pt would like to wait until the morning before surgery. npo, ngt, in am - sigmoidoscopy, ex lap, partial colon resection, possible ostomy 09/12/18: doing well post op. stool in bag. ice chips. pain control. path pending. 09/13/18: doing well. pain controlled. ngt d/c'd. d/c madeleine. oob. clears, adat. Exam Sepsis Risk: No Definite Risk ALAN MILLAN Sep 13, 2018 09:00
--- NOTE | 2018-09-13 09:01 | General Surgery Progress Note ---
Subjective Progress Notes Subjective delayed note (pt seen mult times on 09/12/18). pt doing well. stool in bag. pain controlled. Physical Exam Vital Signs Date Time Temp Pulse Resp B/P (MAP) Pulse Ox O2 Delivery O2 Flow Rate FiO2 09/13/18 07:39 98 Nasal Cannula 1.5 09/13/18 06:39 98.6 85 18 120/72 (88) Intake and Output 09/13/18 07:00 Intake Total 4117 ml Output Total 2475 ml Balance 1642 ml Intake Oral 860 ml IV Total 3257 ml Output Urine Total 1800 ml Stool Total 525 ml Gastric Drainage Total 150 ml # Bowel Movements 1 General Appearance: No Acute Distress GI: Other (stool in bag, stoma pink) Result Diagram: 09/13/18 0557 09/13/18 0557 Assessment and Plan Problems: (1) Colon obstruction Assessment & Plan: 09/11/18: symptoms for about 1 mo. now colon obstruction with dilated colon and possible mass in descending colon. vomiting. discussed options with the pt. pt would like to wait until the morning before surgery. npo, ngt, in am - sigmoidoscopy, ex lap, partial colon resection, possible ostomy 09/12/18: doing well post op. stool in bag. ice chips. pain control. path pending. Exam Sepsis Risk: No Definite Risk ALAN MILLAN Sep 13, 2018 09:01
--- NOTE | 2018-09-13 11:18 | Antimicrobial Stewardship ---
Antimicrobial Time Out Antimicrobial Stewardship MD Service: Hospitalist, Other (Dr. Gao, surgeon) Indications: Other (post-op sigmoid colectomy prophylaxis) Antimicrobial Used Zosyn 3.375 gm IVPB q 6 hours Culture Results: N/A SUDHAKAR WEBER Sep 13, 2018 11:18
[2018-09-13 11:44] VITALS: BP 136/88
[2018-09-13] MEDS: CALCIUM CARBONATE 500 MG CHEW PO PRN ×2 (12:33→17:01)
[2018-09-13] MEDS: NS(*) 0.9% 1000 ML BAG 1,000 ML IV PRN ×2 (13:02→22:11)
[2018-09-13 15:13] VITALS: BP 134/76
[2018-09-13] MEDS: KETOROLAC 30 MG/ML VIAL IVP SCH ×2 (17:02→23:15)
[2018-09-13] MEDS: TAMSULOSIN HCL 0.4 MG CAP PO SCH (20:30)
[2018-09-13] MEDS: ENOXAPARIN 40 MG/0.4ML SYR SC SCH (20:30)
[2018-09-13 20:34] VITALS: BP 112/71
[2018-09-13] MEDS: ZOLPIDEM TARTRATE 10 MG TAB PO PRN (23:14)
[2018-09-14 00:01] VITALS: BP 103/58
[2018-09-14 03:39] VITALS: BP 103/63
[2018-09-14] MEDS: PIPERACILLIN/TAZO*3.375GM VIAL 3.375 GM in NS(*) 0.9% 100 ML MINI-BAG 100 ML IVPB SCH ×3 (05:34→17:13)
[2018-09-14] MEDS: KETOROLAC 30 MG/ML VIAL IVP SCH ×3 (05:34→17:13)
[2018-09-14] MEDS: NS(*) 0.9% 1000 ML BAG 1,000 ML IV PRN (05:51)
[2018-09-14 07:00] VITALS: BP 109/67
[2018-09-14] MEDS ORDERED: HYDR-654 PO (07:08)
[2018-09-14] MEDS ORDERED: TAMS0.4C25 PO (07:09)
[2018-09-14] MEDS ORDERED: ONDA4TAB9 PO (07:10)
--- NOTE | 2018-09-14 07:13 | General Surgery Progress Note ---
Subjective Progress Notes Subjective no acute events. chyna food. pain controlled. Physical Exam Vital Signs Date Time Temp Pulse Resp B/P (MAP) Pulse Ox O2 Delivery O2 Flow Rate FiO2 09/14/18 06:00 12 93 09/14/18 03:39 98.4 80 103/63 (76) Nasal Cannula 2.0 Intake and Output 09/14/18 07:00 Intake Total 5217 ml Output Total 1900 ml Balance 3317 ml Intake Oral 2220 ml IV Total 2997 ml Output Urine Total 1775 ml Stool Total 125 ml # Voids 101 General Appearance: No Acute Distress Cardiovascular: Other (reg rate) Respiratory: No Respiratory Distress GI: Other (soft, inc c/d/i, stoma pink) Result Diagram: 09/13/18 0557 09/13/18 0557 Assessment and Plan Problems: (1) Colon obstruction Assessment & Plan: 09/11/18: symptoms for about 1 mo. now colon obstruction with dilated colon and possible mass in descending colon. vomiting. discussed options with the pt. pt would like to wait until the morning before surgery. npo, ngt, in am - sigmoidoscopy, ex lap, partial colon resection, possible o stomy 09/12/18: doing well post op. stool in bag. ice chips. pain control. path pending 09/13/18: doing well. ambulate. advance diet. on lovenox. 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 flomax. may need salvador replaced. ambulate. ct chest. Exam Sepsis Risk: No Definite Risk ALAN MILLAN Sep 14, 2018 07:13
[2018-09-14] MEDS: PANTOPRAZOLE SOD 20 MG TABEC PO SCH (08:28)
--- NOTE | 2018-09-14 10:39 | Medical Nutrition Therapy ---
Nutrition Anthropometrics Height (Inches): 66.00 Height (Calculated Centimeters: 167.815348 Weight (Pounds): 150 Weight (Calculated Kilograms): 68.266 Fabio Nutrition Score: Adequate Fabio Nutrition Risk Score: 20 Dietary Referral Nutrition Risk Factors: Nutrition Risk Comment: Physical Findings Physical Appearance: Skin Appearance Skin Appearance: Edema Edema Location Modifier: Edema Location: Type of Edema: Degree of Edema: Gastrointestinal Symptoms GI Symtoms: Change in Bowel Pattern Tube Present: NG Bowel Sounds: Recent Bowel Pattern: No Bowel Movement Stool Characteristics: Nutritional Diagnosis Nutritional Risk Acuity 1: GI Obstruction Past Medical History: Carpal tunnel in right hand Nutritional Acuity: 1-High Nutrition Diagnosis: Inadequate Food Intake Nutrition Etiology: Physiological Causes Nutrition Problem/Etiology/Sym: Inadequate food intake related to physiological causes as evidenced by GI obstruction. Energy Requirement: 1900 (MSJ, 1.1 TEF,) Protein Requirement: 68 (1g AA/kg of BW) Fluid Requirement: 1900 (1ml/kcal) Diet Type: Medical Liquid/GI soft Nutrition Intervention: Incr diet as tolerated Nutrition Monitoring & Eval Nutrition Goals: Eat 50-100% Meal Nutrition Follow-Up: Fair Intake Nutrition Monitorin/5: 50-100% of small clear liquid meals. RD Patient Assessment Time: [address] Assessment Type: RD Re-Assessment Patient Nutrition Acuity: 1-High Follow Up Date: Sep 14, 2018 Nutritional Comment: 09/12: Pt admitted for GI obstruction. Pt has hx of carpal tunnel in right hand. Pt is currently taking enoxaparin and has no significant labs. Pt is currently NPO/ice chips and no intake reported. Continue to monitor. -JASWANT 09/14: Pt admitted for GI obstruction, doing better. Pt has decreased sodium (135), calcium (8.1), and elevated carcinoembryonic ag (11.8). Pt was consuming 50-100% of small clear liquid meals. Pt is currently on a GI soft diet with no intake reported. Continue to monitor. -MARLEY CASTILLO Sep 14, 2018 08:42
[2018-09-14 11:55] VITALS: BP 129/80
[2018-09-14] MEDS ORDERED: IOPAMIDOL 76% 150 ML INFUS BTL 150 ML ONE (12:28)
[2018-09-14] MEDS: APAP/HYDROCODONE 325/7.5 TAB PO PRN ×3 (12:42→21:28)
--- NOTE | 2018-09-14 14:08 | RADIOLOGY IMAGING REPORT ---
FACILITY: [facility] PATIENT NAME: Taurus Baum : 1960 MR: [id number] V: [id number] EXAM DATE: ORDERING PHYSICIAN: ALAN MILLAN TECHNOLOGIST: Location: [facility] Patient: Taurus Baum : 1960 Visit/Account:[id number] Date of Sevice: 09/14/2018 CT CHEST (CONTRAST) History: colon cancer TECHNIQUE: Contiguous axial images were performed through the chest to the level of the adrenal gla nds following the administration of IV contrast. Coronal and sagittal reformatting was also perform ed.Dose Lowering Technique One of the following dose optimization techniques was utilized in the performance of this exam: Autom ated exposure control; adjustment of the mA and/or kV according to the patient's size; or use of an i terative reconstruction technique. Specific details can be referenced in the facility's radiology C T exam operational policy. Contrast: 75 mL Isovue-370 COMPARISON STUDIES: CT abdomen pelvis September 11, 2018. Lungs / Pleura: There has been interval development of small posterior layering bilateral pleural e ffusions and compressive atelectasis in both lower lobes. Thicker bands of atelectasis are also iden tified in the superolateral lower lobes. There is a 1.6 x 1.2 cm stellate area of consolidation in t he inferomedial right upper lobe abutting the major fissure which could represent an additional focus of atelectasis however given its irregular margins short-term interval follow-up recommended Mediastinum/nodes: negative. Heart and vessels: negative. Musculoskeletal / Body wall: There are mild generative changes of the right shoulder. Upper abdomen: Visualized abdominal viscera negative. IMPRESSION: There has been interval development of small posterior layering bilateral pleural effusions and compr essive atelectasis in both lower lobes. Thick bands of atelectasis are also identified in the superi or lateral lower lobes There is a 1.6 x 1.2 cm stellate area of consolidation in the inferomedial right upper lobe abutting the major fissure which could represent an additional focus of atelectasis however given its irregula r margins short-term interval follow-up is recommended Report Dictated By: Marina Simms MD at 09/14/2018 1:57 PM Report E-Signed By: Marina Simms MD at 09/14/2018 2:05 PM [id number]
--- NOTE | 2018-09-14 15:53 | Medical Nutrition Therapy ---
Nutrition Anthropometrics Height (Inches): 66.00 Height (Calculated Centimeters: 167.069740 Weight (Pounds): 150 Weight (Calculated Kilograms): 68.266 Fabio Nutrition Score: Adequate Fabio Nutrition Risk Score: 20 Dietary Referral Nutrition Risk Factors: Nutrition Risk Comment: Nutritional Diagnosis Nutritional Risk Acuity 1: GI Obstruction Past Medical History: Carpal tunnel in right hand Nutritional Acuity: 1-High Nutrition Diagnosis: Inadequate Food Intake Nutrition Etiology: Physiological Causes Nutrition Problem/Etiology/Sym: Inadequate food intake related to physiological causes as evidenced by GI obstruction. Energy Requirement: 1900 (MSJ, 1.1 TEF,) Protein Requirement: 68 (1g AA/kg of BW) Fluid Requirement: 1900 (1ml/kcal) Diet Type: Medical Liquid/GI soft Nutrition Intervention: Incr diet as tolerated Nutrition Monitoring & Eval RD Patient Assessment Time: [address] Assessment Type: RD Re-Assessment Patient Nutrition Acuity: 1-High Follow Up Date: Sep 17, 2018 Nutritional Comment: /: Pt admitted for GI obstruction. Pt has hx of carpal tunnel in right hand. Pt is currently taking enoxaparin and has no significant labs. Pt is currently NPO/ice chips and no intake reported. Continue to monitor. -JJ 09/14: Pt admitted for GI obstruction, doing better. Pt has decreased sodium (135), calcium (8.1), and elevated carcinoembryonic ag (11.8). Pt was consuming 50-100% of small clear liquid meals. Pt is currently on a GI soft diet with no intake reported. Continue to monitor. -JJ 09/14 updated f/u date. SHAYAN CASTRO Sep 14, 2018 15:53
--- NOTE | 2018-09-14 17:13 | Hospitalist Depart ---
Discharge Summary Reason for Hosp/Final Diag: (1) Colon obstruction Hospital Course & Plan: 09/11/18: symptoms for about 1 mo. now colon obstruction with dilated colon and possible mass in descending colon. vomiting. discussed options with the pt. pt would like to wait until the morning before surgery. npo, ngt, in am - sigmoidoscopy, ex lap, partial colon resection, possible ostomy 09/12/18: doing well post op. stool in bag. ice chips. pain control. path pending 09/13/18: doing well. ambulate. advance diet. on lovenox. 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 may need salvador replaced. ambulate. ct chest. likely home in am. Departure Weight (Pounds): 150 Weight (Ounces): 8.0 Result Diagram: 09/13/1857 09/13/18556 Condition: Improved Discharge Instructions Home Meds Active Scripts Ondansetron 4 Mg Odt (ONDANSETRON 4 MG ODT) 4 Mg Tab.rapdis, 4 MG PO ONCE PRN for NAUSEA/VOMITING, #20 TAB 1 Refill Prov:ALAN JERONIMO 09/14/18 Tamsulosin Hcl (FLOMAX) 0.4 Mg Cap.er.24h, 0.4 MG PO QDAY, #14 CAP Prov:ALAN JERONIMO 09/14/18 Hydrocodone Bit/Acetaminophen (NORCO 7.5-325 TABLET) 1 Each Tablet, 1 EACH PO Q4H PRN for PAIN, #60 TAB Prov:ALAN JERONIMO 09/14/18 Discontinued Reported Medications Multivitamin (DAILY VITAMIN) 1 Each Tablet, 1 EACH PO DAILY 01/04/13 Diet: Regular Activity: No Heavy Lifting Special Instructions: f/u [facility] 2-3 wks ([phone]). no lifting more than 20 lbs. ok to shower. Copies to: [facility]ITT ; Venous Thromboembolism Antithrombotics Is Pt On Any Antithrombotics?: No ALAN JERONIMO Sep 14, 2018 17:13
[2018-09-14 18:42] VITALS: BP 112/74
[2018-09-14 20:30] VITALS: BP 112/74
[2018-09-14] MEDS: ENOXAPARIN 40 MG/0.4ML SYR SC SCH (21:28)
[2018-09-14] MEDS: ZOLPIDEM TARTRATE 10 MG TAB PO PRN (21:28)
[2018-09-14] MEDS: TAMSULOSIN HCL 0.4 MG CAP PO SCH (21:28)
[2018-09-14] MEDS: CALCIUM CARBONATE 500 MG CHEW PO PRN (23:13)
[2018-09-15] VITALS (7 sets, daily range): BP systolic 120–139; BP diastolic 70–86
[2018-09-15] MEDS: KETOROLAC 30 MG/ML VIAL IVP SCH ×5 (00:01→23:59)
[2018-09-15] MEDS: PIPERACILLIN/TAZO*3.375GM VIAL 3.375 GM in NS(*) 0.9% 100 ML MINI-BAG 100 ML IVPB SCH ×5 (00:02→23:58)
[2018-09-15] MEDS: NS(*) 0.9% 1000 ML BAG 1,000 ML IV PRN (03:57)
--- NOTE | 2018-09-15 08:21 | General Surgery Progress Note ---
Subjective Patient Complains of: Gastrointestinal: Other (gas pain/bloating); No Nausea, No Vomiting Physical Exam Vital Signs Date Time Temp Pulse Resp B/P (MAP) Pulse Ox O2 Delivery O2 Flow Rate FiO2 09/15/18 08:00 86 09/15/18 06:52 98.1 64 12 139/84 (102) Nasal Cannula 1.0 Intake and Output 09/15/18 06:59 Intake Total 1880 ml Output Total 2295 ml Balance -415 ml Intake Oral 780 ml IV Total 1100 ml Output Urine Total 2220 ml Stool Total 75 ml # Voids 8 General Appearance: Alert, Awake, No Acute Distress Neuro: No Gross deficits ENT: Normal Cardiovascular: Normal Rhythm & Peripheral Pulses Respiratory: No Respiratory Distress GI: Other (soft, distended, tympanic to percussion; stoma pink and moist left abdomen with soft brown stool in bag; incision with dressing intact, clean/dry) Integumentary: Skin Intact without Lesion / Mass Psych: Alert & Oriented X3 Result Diagram: 09/13/18 0557 09/13/18 0557 Assessment and Plan Problems: (1) Colon obstruction Assessment & Plan: 09/11/18: symptoms for about 1 mo. now colon obstruction with dilated colon and possible mass in descending colon. vomiting. discussed options with the pt. pt would like to wait until the morning before surgery. npo, ngt, in am - sigmoidoscopy, ex lap, partial colon resection, possible ostomy 09/12/18: doing well post op. stool in bag. ice chips. pain control. path pending 09/13/18: doing well. ambulate. advance diet. on lovenox. 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 flomax. may need salvador replaced. ambulate. ct chest. likely home in am 09/15/18: POD#3 s/p Bronwyn's procedure for obstructing sigmoid colon mass. Tolerating PO, but with increased distention and gas pains overnight. Improved this AM. Having stool output, but still belching a lot and c/o reflux. Will monitor symptoms, encouraged ambulation. Reassess in PM for possible discharge, more likely tomorrow AM. Continue ostomy teaching. Exam Sepsis Risk: No Definite Risk FRANCISCO CHAMBERS MD Sep 15, 2018 08:21
[2018-09-15] MEDS: CALCIUM CARBONATE 500 MG CHEW PO PRN (09:11)
[2018-09-15] MEDS: PANTOPRAZOLE SOD 20 MG TABEC PO SCH (09:11)
[2018-09-15] MEDS: SIMETHICONE 80 MG CHEW CHEW PRN (15:06)
[2018-09-15] MEDS: APAP/HYDROCODONE 325/7.5 TAB PO PRN ×2 (15:15→21:45)
[2018-09-15] MEDS ORDERED: ONDANSETRON 4 MG/2 ML VIAL IVP PRN (21:40)
[2018-09-15] MEDS: TAMSULOSIN HCL 0.4 MG CAP PO SCH (21:45)
[2018-09-15] MEDS: ZOLPIDEM TARTRATE 10 MG TAB PO PRN (21:45)
[2018-09-15] MEDS: ENOXAPARIN 40 MG/0.4ML SYR SC SCH (21:45)
[2018-09-16 04:54] VITALS: BP 136/99
[2018-09-16] MEDS: NS(*) 0.9% 1000 ML BAG 1,000 ML IV PRN (04:57)
[2018-09-16] MEDS: APAP/HYDROCODONE 325/7.5 TAB PO PRN ×3 (04:57→22:09)
[2018-09-16] MEDS: KETOROLAC 30 MG/ML VIAL IVP SCH ×3 (06:02→18:08)
[2018-09-16] MEDS: PIPERACILLIN/TAZO*3.375GM VIAL 3.375 GM in NS(*) 0.9% 100 ML MINI-BAG 100 ML IVPB SCH ×3 (06:02→18:09)
[2018-09-16 07:39] VITALS: BP 133/77
[2018-09-16] MEDS: SIMETHICONE 80 MG CHEW CHEW PRN (08:50)
[2018-09-16] MEDS: PANTOPRAZOLE SOD 20 MG TABEC PO SCH (08:50)
--- NOTE | 2018-09-16 08:50 | General Surgery Progress Note ---
Subjective Progress Notes Subjective Nauseated last night but no emesis. Belching a lot. Still feels distended. Having a lot of stoma output as well. Patient Complains of: Gastrointestinal: Nausea, Flatus, Bowel Movement; No Vomiting Physical Exam Vital Signs Date Time Temp Pulse Resp B/P (MAP) Pulse Ox O2 Delivery O2 Flow Rate FiO2 09/16/18 07:39 98.5 69 20 133/77 (95) 92 Nasal Cannula 1.0 Intake and Output 09/16/18 07:00 Intake Total 1668 ml Output Total 700 ml Balance 968 ml Intake Oral 120 ml IV Total 1548 ml Stool Total 700 ml # Voids 3 General Appearance: Alert, Awake, No Acute Distress Neuro: No Gross deficits Eyes: PERRLA ENT: Normal Cardiovascular: Normal Rhythm & Peripheral Pulses Respiratory: No Respiratory Distress GI: Other (soft, distended, tympanitic to percussion; stoma pink and moist with gas and liquid brown stool in bag) Musculoskeletal: No Weakness/Pain Extremities: Soft and Non Tender Integumentary: Skin Intact without Lesion / Mass Psych: Alert & Oriented X3 Result Diagram: 09/13/18 0557 09/13/18 0557 Assessment and Plan Problems: (1) Colon obstruction Assessment & Plan: 09/11/18: symptoms for about 1 mo. now colon obstruction with dilated colon and possible mass in descending colon. vomiting. discussed options with the pt. pt would like to wait until the morning before surgery. npo, ngt, in am - sigmoidoscopy, ex lap, partial colon resection, possible ostomy 09/12/18: doing well post op. stool in bag. ice chips. pain control. path pending 09/13/18: doing well. ambulate. advance diet. on lovenox. 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 may need salvador replaced. ambulate. ct chest. likely home in am 09/15/18: POD#3 s/p Bronwyn's procedure for obstructing sigmoid colon mass. Tolerating PO, but with increased distention and gas pains overnight. Improved this AM. Having stool output, but still belching a lot and c/o reflux. Will monitor symptoms, encouraged ambulation. Reassess in PM for possible discharge, more likely tomorrow AM. Continue ostomy teaching. 09/16/18: POD#4 s/p Bronwyn's procedure for obstructing sigmoid colon mass. A lot of belching and some nausea last night, no emesis. Continues to have gas and stool from bag. Minimal pain, mostly discomfort from distention. Low appetite. Plan to do ostomy appliance change today with nursing. Will continue to monitor ileus. Exam Sepsis Risk: No Definite Risk FRANCISCO CHAMBERS MD Sep 16, 2018 08:50
--- NOTE | 2018-09-16 12:05 | Medical Nutrition Therapy ---
Nutrition Anthropometrics Height (Inches): 66.00 Height (Calculated Centimeters: 167.690054 Weight (Pounds): 150 Weight (Calculated Kilograms): 68.266 Fabio Nutrition Score: Adequate Fabio Nutrition Risk Score: 21 Dietary Referral Nutrition Risk Factors: Nutrition Risk Comment: Nutritional Diagnosis Nutritional Risk Acuity 2: New Colostomy Past Medical History: Carpal tunnel in right hand Nutritional Acuity: 2-Moderate Nutrition Diagnosis: Altered GI Function Nutrition Etiology: Physiological Causes Nutrition Problem/Etiology/Sym: altered GI function related to physiological causes as evidenced by new colostomy. Energy Requirement: 1900 (MSJ, 1.1 TEF,) Protein Requirement: 68 (1g AA/kg of BW) Fluid Requirement: 1900 (1ml/kcal) Diet Type: Medical Liquid/GI soft Nutrition Intervention: Encourage intake, Incr diet as tolerated Nutrition Monitoring & Eval Nutrition Goals: Eat 75-100% Meal Nutrition Follow-Up: Fair Intake RD Patient Assessment Time: [address] Assessment Type: RD Education Patient Nutrition Acuity: 2-Moderate Follow Up Date: Sep 21, 2018 Nutritional Comment: 09/12: Pt admitted for GI obstruction. Pt has hx of carpal tunnel in right hand. Pt is currently taking enoxaparin and has no significant labs. Pt is currently NPO/ice chips and no intake reported. Continue to monitor. -JJ 09/14: Pt admitted for GI obstruction, doing better. Pt has decreased sodium (135), calcium (8.1), and elevated carcinoembryonic ag (11.8). Pt was consuming 50-100% of small clear liquid meals. Pt is currently on a GI soft diet with no intake reported. Continue to monitor. -JJ 09/14 updated f/u date. CHATO 09/16 Reviewed colostomy diet with pt and . Pt cont on med liquid/GI soft diet and eating 50-75%. Will cont to monitor. BK Nutritional Education Nutrition Education Topic: Other (colostomy) Learning Readiness: Interested Teaching Methods: Discussion, Handout Response to Teaching: Verbalize understanding Teaching Recipient: Patient, Significant Other Nutrition Counseling: Provided handout on diet for colostomy. Reviewed foods that can cause gas, blockage, oder, discoloration. Encouraged pt to try new foods slowly. SHAYAN EASLEY Sep 16, 2018 12:05
[2018-09-16 14:57] VITALS: BP 141/85
[2018-09-16] MEDS: CALCIUM CARBONATE 500 MG CHEW PO PRN (15:26)
[2018-09-16 18:45] VITALS: BP 133/75
[2018-09-16] MEDS: TAMSULOSIN HCL 0.4 MG CAP PO SCH (20:59)
[2018-09-16] MEDS: ENOXAPARIN 40 MG/0.4ML SYR SC SCH (20:59)
[2018-09-16] MEDS: ZOLPIDEM TARTRATE 10 MG TAB PO PRN (22:13)
[2018-09-16 22:20] VITALS: BP 113/80
[2018-09-17] MEDS ORDERED: KETOROLAC 30 MG/ML VIAL IVP PRN (00:08)
[2018-09-17] MEDS: PIPERACILLIN/TAZO*3.375GM VIAL 3.375 GM in NS(*) 0.9% 100 ML MINI-BAG 100 ML IVPB SCH ×3 (00:22→12:21)
[2018-09-17 06:05] VITALS: BP 128/83
--- NOTE | 2018-09-17 08:31 | General Surgery Progress Note ---
Subjective Progress Notes Subjective No complaints this morning. Feeling less bloated. No N/V. Tolerating diet. Physical Exam Vital Signs Date Time Temp Pulse Resp B/P (MAP) Pulse Ox O2 Delivery O2 Flow Rate FiO2 09/17/18 06:05 65 128/83 (98) 92 Nasal Cannula 2.0 09/16/18 22:20 98.0 16 Intake and Output 09/17/18 06:59 Intake Total 3722 ml Output Total 400 ml Balance 3322 ml Intake Oral 2790 ml IV Total 932 ml Stool Total 400 ml # Voids 5 General Appearance: Alert, Awake, No Acute Distress, Afebrile GI: Soft and Non-Tender (Mildly distended but he and his report this is much better than even yesterday. Incision looks good without erythema or drainage. Stoma is pink and functional.) Result Diagram: 09/13/18 0557 09/13/18 0557 Assessment and Plan Problems: (1) Colon obstruction Assessment & Plan: 09/11/18: symptoms for about 1 mo. now colon obstruction with dilated colon and possible mass in descending colon. vomiting. discussed options with the pt. pt would like to wait until the morning before surgery. npo, ngt, in am - sigmoidoscopy, ex lap, partial colon resection, possible ostomy 09/12/18: doing well post op. stool in bag. ice chips. pain control. path pending 09/13/18: doing well. ambulate. advance diet. on lovenox. 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 may need salvador replaced. ambulate. ct chest. likely home in am 09/15/18: POD#3 s/p Bronwyn's procedure for obstructing sigmoid colon mass. Tolerating PO, but with increased distention and gas pains overnight. Improved this AM. Having stool output, but still belching a lot and c/o reflux. Will monitor symptoms, encouraged ambulation. Reassess in PM for possible discharge, more likely tomorrow AM. Continue ostomy teaching. 09/16/18: POD#4 s/p Bronwyn's procedure for obstructing sigmoid colon mass. A lot of belching and some nausea last night, no emesis. Continues to have gas and stool from bag. Minimal pain, mostly discomfort from distention. Low appetite. Plan to do ostomy appliance change today with nursing. Will continue to monitor ileus. 09/17/18: POD#5. Doing well. Bowel function is returning. He wishes to go home. Will d/c to home today on low residue diet and he can advance diet as he continues to feel better. Minimal pain. Good stoma function. Nurses to perform more stoma teaching today before discharge. Pt given option to remain in hospital but he wishes to go home and they [place] of town and can get to the hospital if needed. Condition Stable. Time Spent: < 30 min Exam Sepsis Risk: No Definite Risk BASIM GAMINO MD Sep 17, 2018 08:31
[2018-09-17] MEDS: PANTOPRAZOLE SOD 20 MG TABEC PO SCH (08:58)
[2018-09-17 12:28] VITALS: BP 130/95
[2018-09-17] MEDS: APAP/HYDROCODONE 325/7.5 TAB PO PRN (12:32)
== END 2018-09-17 15:16 | disposition home or self-care (01) | DRG 330 ==
LOC: ER 18:54 → MED 09-12 00:15
PROVIDERS: ADMIT Surgery; ATTEND Surgery
PROC: 0DBN0ZZ Excision of Sigmoid Colon, Open Approach (ICD-10-PCS; principal; 2018-09-12 05:02)
PROC: 0D1N0Z4 Bypass Sigmoid Colon to Cutaneous, Open Approach (ICD-10-PCS; 2018-09-12 05:02)
DX: K60.2 Anal fissure, unspecified (principal); C18.6 Malignant neoplasm of descending colon; K63.5 Polyp of colon
CPT/HCPCS: 36415; 71045; 71260; 74177; 82040; 82247; 82310; 82374; 82378; 82435; 82565; 82947; 83735; 84075; 84132; 84155; 84295; 84450; 84460; 84520; 85025; 86850; 86900; 86901; 88305; 88307; 88344; 93005; 96361; 96374; 96375; 96376; 99284; C9113; J0131; J0330; J1100; J1170; J1650; J1885; J1956; J2001; J2250; J2270; J2405; J2543; J2550; J2704; J3010; J3490; J7030; Q9967

== ENCOUNTER → 2018-11-21 | Outpatient (CLI) | payer OTHER ==
[2018-09-12 15:30] VITALS: BMI 24.2
[~2018-11-21] MED LIST changes: +HYDR-654 PO; +LORA-1455 PO; +ONDA4TAB9 PO; +ONDA4TAB97 PO; +PROC10TA4 PO; +TAMS0.4C25 PO; +XELOD500PT GT
== END ==
LOC: US 01:25
PROVIDERS: ATTEND Internal Medicine Cardiovascular Disease
DX: I34.0 Nonrheumatic mitral (valve) insufficiency (principal)
CPT/HCPCS: 93306

== ENCOUNTER 2018-12-03 12:25 | Outpatient (RCR) | payer OTHER ==
[2018-09-12 15:30] VITALS: Ht 167.6 cm; Wt 72.9 kg
[2018-09-19 11:20] VITALS: BP 136/81
[2018-09-19 11:36] LABS: PLATELET COUNT, AUTOMATED 283 K/uL (150-450)
--- NOTE | 2018-09-21 16:27 | ONCOLOGY CONSULTATION ---
EVENT DATE: September 19, 2018 CHIEF COMPLAINT/REASON FOR VISIT Newly diagnosed adenocarcinoma of the colon, status post resection. 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 INTERIM HISTORY Mr. Baum is a pleasant 58-year-old male who is here today for oncology consultation regarding newly diagnosed colon cancer. He is accompanied in the office today by his . He tells me that he began to have GI symptoms consisting of constipation, bloating, distention, and occasional nausea back in early August. He tells me that he was seen by his primary care physician, and an x-ray was done which was positive for obstruction. He apparently then went to the ER and had a couple of enemas and CT scan and was discharged home. He reports that he continued to have significant pain for about three more days, though tried going back to work. He was still having symptoms of constipation despite using magnesium citrate times several bottles. After approximately one week, he then went back into the ER. His most recent ER visit was when he was admitted here in [facility]. He was also having some diffuse abdominal cramping. CT at that time did not show any discrete obstruction; however, he was noted to have a large stool burden. He reports that he has had some left lower quadrant tenderness for a couple of months now, most noticeable when all of these symptoms really became noticeable in August. He had not had any colonoscopy throughout this time. He does mention that he did see either a PCP or landscape foreman last year and had consultation scheduled, which he went to, and tells me he was trying to be proactive to try to get colonoscopy scheduled given his age of 51 years. Per patient's report, he was told that he did not need colonoscopy at that time and could wait another five years. Patient tells me that he is unsure of whether or not the physician at that time knew of his family history, and patient cannot recall. His most recent ER visit, again when he was admitted, did show colonic obstruction with dilated colon and a mass in the descending colon. He was vomiting. He has now had colonoscopy/sigmoidoscopy, and he is status post hemicolectomy and ostomy placement. Pathology report here at [facility] revealed tubular adenoma in the descending colon and tumor in the sigmoid and descending colon which invades through the entire smooth muscle wall of the bowel and extends into the subadjacent pericolonic adipose tissue. Tumor does not appear to involve the serosal surface. Margins were negative. Again, pathology did reveal moderately differentiated colonic adenocarcinoma. 15 lymph nodes were all NEGATIVE FOR METASTATIC MALIGNANCY. Patient is aware of his diagnosis and has seen his surgeon in the interim. He follows up with Dr. Gao. He has a followup with Dr. Gao next Monday at 11 a.m. Patient tells me he is actually feeling quite well since being discharged. He reports that his ostomy is functioning well. He was just discharged two days ago this week. He does tell me that during his hospitalization, he did have quite a bit of edema, but this is all significantly improved. He even had scrotal edema while inpatient. He tells me that now he only has mild swelling noted to his lower extremities, confined to just to the lower calves bilaterally. Lastly, he does tell me that he is on oxygen 2L via nasal cannula at bedtime due to some hypoxemia evidenced by oxygen desaturation while inpatient. This is new for him ever since being admitted. He feels like he is breathing well. He is eating and drinking fluids well. He does not have any significant pain. He has not had any fever or chills or night sweats. He did have some weight loss prior to surgery. He tells he has lost 9 pounds between August and today, or roughly, he has lost 9 pounds in about six weeks. ONCOLOGY HISTORY Status post colon resection/hemicolectomy on 09/12/18. Positive for moderately differentiated adenocarcinoma of the colon. Tumor measures 2.5 x 2.3 x 2.2 cm. Tumor does not appear to involve the serosal surface. Tumor is characterized by invasive angulated glandular units. Proximal and distal surgical resection margins were negative. 15 lymph nodes were identified, and all were negative for metastatic malignancy. Microsatellite panel was done. MLH-1: Positive. MSH-2: Positive. MSH-6: Positive. PMS-2: Positive. Molecular testing for KRAS, NRAS, and BRAF are currently pending. PAST MEDICAL HISTORY 1. 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 He reports he weighed approximately 3 pounds at . 2. History of carpal tunnel syndrome. PAST SURGICAL HISTORY 1. Right hand carpal tunnel surgery in 2017. 2. Broken leg many years ago in the early 1970s. Patient cannot recall if it was left or right. FAMILY HISTORY Positive for Alzheimer dementia in his mother. She is currently alive and in the home. History is positive for malignancy in both his maternal grandmother and grandfather. Apparently, his maternal grandmother and grandfather both had colon cancer. They are , and he believes they from this. Positive for malignancy in his father, who had lung cancer. His father apparently had partial lobectomy and did not require adjunct therapy/adjunct chemotherapy. He is still alive. Father does have hypertension. SOCIAL HISTORY Patient works at the [employer]. He reports that he has always had low oxygen saturation levels, and in the past, has had spirometry testing performed due to his job. He is a never smoker; however, he did chew tobacco x46 years. He stopped chewing in August 2018 when his GI symptoms began to become quite noticeable. Patient is . He and his have two children, two sons. ALLERGIES No known drug allergies. MEDICATIONS 1. Ondansetron 4 mg ODT p.r.n. nausea/vomiting. 2. Hydrocodone/acetaminophen 7.5/325 mg one tablet p.o. q.4 hours p.r.n. pain. 3. Tamsulosin HCl 0.4 mg capsule one p.o. q. day. REVIEW OF SYSTEMS CONSTITUTIONAL: Patient denies any chills, night sweats, or fevers. No recent infections. He reports good appetite at this time. He does state that he lost approximately 9 pounds in the last six to eight weeks due to GI symptoms and liquid diet during that time. HEENT: He denies any vision changes. No tinnitus. No nasal drainage or epistaxis. No mouth sores. NECK: He denies any neck pain. RESPIRATORY: He denies any significant cough, sputum production, hemoptysis, or pleuritic chest pain. He is on oxygen 2L via nasal cannula at bedtime. This was just initiated due to hypoxemia while inpatient. He is hopeful that this will be discontinued in the near future. He does report that he has always had low oxygen levels and has had spirometry performed in the past. CARDIAC: He denies any chest pain. No palpitations. No syncope, no presyncope. GASTROINTESTINAL: Per Interval History. Currently, no abdominal pain, nausea, or vomiting. He now has an ileostomy in the left lower quadrant. This is functioning well. Appetite is good. He is using an abdominal binder. GENITOURINARY: He has some occasional BPH symptoms, currently on tamsulosin. He has stable nocturia x2 to x3. MUSCULOSKELETAL: No focal areas of pain. PSYCHIATRIC: Patient is in good spirits. He denies any severe anxiety, severe depression, suicidal or homicidal ideation. NEUROLOGIC: He denies any headache. No seizure-like activity. No paresthesias. ENDOCRINE: No heat or cold intolerance. Energy level is improving now that he is out of the hospital. He believes he is recovering well. Remainder of a 12-point review of systems is performed today and is otherwise negative. PHYSICAL EXAMINATION VITAL SIGNS: Weight 72.1 kg. Temperature 97.6, pulse 101, respirations 16, BP 137/81, oxygen saturation 86% room air. He does use oxygen at bedtime. Currently rates pain scale at "0/10." Currently rates his pain as "2/10." GENERAL: In general, this is a pleasant 58-year-old gentleman who appears well hydrated, well nourished, and is in no acute distress. HEAD: Normocephalic, atraumatic. EYES: Sclerae anicteric. ENT, MOUTH: Moist mucous membranes. No mucositis. No suspicious oral lesions. NECK: Supple. No lymphadenopathy. No JVD. CARDIOVASCULAR: Mildly tachycardic with regular rhythm. No ectopy. RESPIRATORY: Lungs reveal clear breath sounds to auscultation bilaterally. No wheezes, rales, or rhonchi. Respiratory effort is normal. GASTROINTESTINAL: Patient is wearing an abdominal binder. Abdomen is mildly distended, but otherwise soft. Ostomy in the left lower quadrant is functioning well. Stoma appears healthy. NEUROLOGIC: Patient is awake, alert, oriented x3. No focal motor or sensory deficits. PSYCHIATRIC: Mood and affect are appropriate. MUSCULOSKELETAL: Ambulation and gait are steady. EXTREMITIES: Trace bilateral lower extremity edema to the lower calf. There is some mild swelling to the dorsal aspect of the right hand, status post peripheral IV while inpatient. This is mild and per patient's report is improving. No signs of infection. DERM: No suspicious rash. No petechiae or purpura. LABORATORY CBC today: WBC 5.3, ANC 4.0, hemoglobin 14.9, hematocrit 45.4%, platelets 283,000. Red blood cell indices are normal. CMP and CEA ordered today and are pending. CEA on 09/12/2018 while inpatient: 11.8. IMAGING CT chest with contrast at [facility] on 09/14/2018: 1. There has been interval development of small posterior laying bilateral pleural effusions and compressive atelectasis in both lower lobes. Thick bands of atelectasis are also identified in the superior, lateral, and lower lobes. 2. There is a 1.6 x 1.2 cm stellate area of consolidation in the inferomedial right upper lobe abutting the major fissure, which could represent an additional focus of atelectasis; however, given its irregular margins, short-term interval followup is recommended. 3. Musculoskeletal: Mild degenerative changes of the right shoulder. CT abdomen and pelvis with contrast at [facility] on 09/11/2018: 1. There is distention of the colon from the cecum to the distal descending colon. In this region of the distal descending colon, there is a focal area of luminal narrowing and wall thickening. No surrounding inflammation. Cannot exclude a colonic lesion. This is likely the cause of the colonic distention. Suggest colonoscopy for further evaluation. 2. Small amount of free fluid seen in the pelvis. 3. Other chronic stable findings as above. 4. Lymph node assessment: No pathologic adenopathy identified. 5. This CT was compared to CT on 08/16/2018. PATHOLOGY Colonoscopy/colon biopsy at [facility] on 09/12/2018: 1. Colon, descending biopsy: Tubular adenoma. 2. Colon, sigmoid and descending, segmental resection: Moderately differentiated colonic adenocarcinoma. Tumor invades through the entire smooth muscle wall of the bowel and extends into the subadjacent pericolonic adipose tissue. The tumor does not appear to involve the serosal surface. 15 lymph nodes identified, and all are negative for metastatic malignancy. The tumor measured 2.5 x 2.3 x 2.2 cm. 3. Colon, proximal staple line NOS: Negative for malignancy. IMPRESSION AND PLAN Mr. Baum is a pleasant 58-year-old gentleman who recently presented with gastrointestinal symptoms to include abdominal distention, abdominal cramping, nausea, vomiting, and constipation leading to bowel obstruction, which all began in early August. He has now had colonoscopy and has been diagnosed with a moderately differentiated colonic adenocarcinoma. He is status post hemicolectomy and has ileostomy placed. He will be following up with his surgeon, Dr. Gao, next week. Patient reports that he was told per Surgery that plan is to have ileostomy in place for six months, followed by reversal/takedown procedure. He is here today to establish care with Oncology. Unfortunately, due to severe weather, patient was unable to meet with Dr. Duran, his medical oncologist. I am meeting patient today in place of Dr. Duran, and Dr. Duran and I have reviewed his case. I have explained to patient and his today that he currently has a stage IIA adenocarcinoma of the colon, grade 2. Tumor is a T3. All 15 lymph nodes are negative for metastatic disease. There were no signs of metastatic disease. Pathology conducted here locally did reveal that he is MSI high positive with panel revealing positive MLH-1, positive MSH-2, positive MSH-6, and positive PMS-2. KRAS, NRAS, and BRAF are currently pending. We discussed the meaning of microsatellite instability markers. He does have a significant family history of cancer to include two grandparents with colon cancer and father who is still alive with history of lung cancer. Patient does have two children, two sons. At this time, given his staging, we do not feel that adjuvant chemotherapy is necessary based on NCCN guidelines. Dr. Duran would like to review his case at [facility], though again at this time, we do not feel that chemotherapy is necessary. I did explain to patient that we will need to continue to follow him with serial labs, and he will need to follow up with his surgeon. He will also need repeat scopes. Patient and his verbalize understanding and were quite happy to hear results. I did explain to patient that Dr. Duran would like to have his pathology sent to [facility] for a second opinion, and this was ordered today. Also discussed that his case will be reviewed at [facility], and if any changes in our current plan are necessary, we will notify him at his next visit. He is MSI high positive and may certainly need genetic counseling to evaluate for hereditary Sevilla syndrome. He does have two sons. This has also been ordered today, and I explained to patient that this will likely be done in [place]. Lastly, he did have an area on his recent CT of the chest which is likely benign and related to recent small pleural effusion and atelectasis, though we do prefer to repeat a short-interval CT scan, likely in the next four to eight weeks. We will order this at his next visit. Patient verbalized understanding for this repeat CT of the chest. He will return to clinic for followup and official consultation with Dr. Duran in two weeks. Patient may certainly follow up sooner in the interim should any need arise, and he was given our contact information. ARIELLE
[2018-10-03 08:07] VITALS: BP 136/80
--- NOTE | 2018-10-04 07:44 | ONCOLOGY FOLLOW UP NOTE ---
EVENT DATE: October 03, 2018 REASON FOR FOLLOWUP Colon cancer. INTERIM HISTORY Mr. Baum returns to clinic for a followup visit today. He is accompanied by his and sons. Since his initial visit here, he reports that he has been feeling pretty well, all things considered. He has been having some trouble with ostomy supplies, however. He reports no significant pain and he denies fever. His appetite is pretty good and his weight has been stable. He is currently taking time off work and he and his family are here to followup on recommendations from GI Multidisciplinary Conference that took place at the [facility] recently. REVIEW OF SYSTEMS Otherwise negative and all systems reviewed. ONCOLOGY HISTORY Stage IIA colon adenocarcinoma, status post resection. * Initial presentation in August 2016 with constipation, abdominal distention and occasional nausea. * Initial CT imaging shows evidence of large stool burden. * Emergency Room presentation subsequently consistent with colonic obstruction, with dilated colon and mass in the descending colon. * September 13, 2018: Patient undergoes Bronwyn's procedure for resection of obstructing sigmoid mass. Pathology shows a moderately to poorly differentiated adenocarcinoma with tumor invading through muscularis purpura and into pericolonic tissues. Proximal, distal and mesenteric margins are uninvolved by tumor. Lymphovascular invasion was not identified. Perineural invasion was not identified. Tumor deposits were not identified. Zero of 7 lymph nodes involved. Pathologic staging pT3 pN0 cM0). Low probability for microsatellite instability. * September 14, 2018: CT chest shows small bilateral layering pleural effusions with compressive atelectasis as well as a 1.6 x 1.2 cm stellate area of consolidation in the inferior medial right upper lobe abutting the major fissure, which could represent an additional focus of atelectasis. Short-term imaging was recommended. PAST MEDICAL HISTORY The patient is otherwise healthy and active but does have a history of carpal tunnel syndrome, status post surgery in 2016. He also has a history of leg fracture in the 1970s. CURRENT MEDICATIONS Zofran p.r.n., hydrocodone/acetaminophen p.r.n. and tamsulosin. ALLERGIES No known drug allergies. SOCIAL HISTORY The patient works at the local [employer] and has been there for 38 years. He has never smoked cigarettes but he had chewed tobacco for 46 years, having quit in August. He is with two sons. FAMILY HISTORY There is a history of Alzheimer dementia in his mother. There is a family history of malignancy with a reported history of colon cancer in his maternal grandmother and grandfather. There is a history of lung cancer in his father. VITAL SIGNS Stable. Patient is afebrile. PHYSICAL EXAMINATION GENERAL: Patient is alert and oriented x3, in no apparent distress, sitting in the exam room chair. He is interactive and quite pleasant. He appears otherwise healthy. HEENT: Anicteric sclerae. NEUROLOGIC: Grossly nonfocal. Gait is normal. EXTREMITY: No edema, clubbing or cyanosis. There is no erythema or tenderness to palpation. ABDOMEN: Ostomy bag in the left lower quadrant. LABORATORY Reviewed per the [facility] record. IMAGING Please see Oncology History. PATHOLOGY Please see Oncology History. ASSESSMENT AND PLAN Stage IIA colon adenocarcinoma with high-risk features. I had a lengthy and in- depth discussion with Joss and his family today. Unfortunately, I was unable to visit with him for his first visit here due to severe weather patterns between [facility] and [facility]. Joss had previously visited with Nguyen Urbina, Nurse Practitioner, to establish in this clinic. Since his initial visit, his case has been reviewed in detail by the GI Multidisciplinary Conference Group at the [facility]. We spent time today reviewing recommendations from this multidisciplinary review. Joss presented with obstructing symptoms and he does appear to have a T3 primary. Seven lymph nodes were identified in the pathology reviewed at [place], and I believe that we may still be waiting for additional tissue blocks from [place]. This appears to be a moderately to poorly differentiated tumor. We spent time today discussing that decision making for adjuvant therapy for patients with Stage II colon cancer has been historically difficult. All things considered, given his high-risk features, the recommendation has been made for 3 to 6 months of 5-FU based adjuvant therapy. The patient has expressed understanding for this recommendation but his was understandably concerned and somewhat upset with the change in plans as they were under the impression that chemotherapy would be unlikely. I have expressed understanding for this concern but we were able to move on with additional discussion about strategy for reduction in risk of recurrence of this colon cancer. We spent a good amount of time today discussing either 5-fluorouracil or capecitabine for three months. I have recommended that he consider capecitabine, for ease of use. He has been taking time away from work and we also spent a considerable amount of time today discussing his options in this regard. In short, I would support his decision to return to work if he would want, but all things considered, it likely will be best for him to remain away from work while going through adjuvant chemotherapy. We discussed common risks and toxicities of capecitabine to include fatigue, nausea, diarrhea, mouth sores, bone marrow suppression, hand/foot syndrome and others. Joss would need to undergo a thorough chemotherapy education soon here in the clinic. Toward the end of our discussion today, I did offer Joss the chance to return home to think about this and discuss things further with his family. He states today that he really does not need additional time to consider this further and he agrees that moving forward with adjuvant chemotherapy as described is what he would like to do. We will arrange for chemotherapy education. I would anticipate that he would do quite well with chemo. We did discuss the rare possibility of DPD deficiency and subsequent severe toxicity from 5-FU based treatment. He will be followed closely here during his chemotherapy and I will plan to see him back in the coming month, upon return to my [facility]. The patient and his family members had multiple insightful and appropriate questions for me today and I believe I answered all of their questions to their satisfaction. I spent a total of 50 minutes of time [id number] with Joss and his family today and 45 minutes of this was spent in direct counseling and coordination of care. ARIELLE
--- NOTE | 2018-10-15 09:35 | EKG ---
FACILITY: [facility] PATIENT NAME: ODALYS BOWER : [id number] MR: [id number] V: [id number] EXAM DATE: ORDERING PHYSICIAN: PK GUIDRY TECHNOLOGIST: SID Larson Reason : ABN. PRIOR ECG Blood Pressure : / mmHG Vent. Rate : 070 BPM Atrial Rate : 070 BPM P-R Int : 134 ms QRS Dur : 154 ms QT Int : 422 ms P-R-T Axes : 065 251 042 degrees QTc Int : 455 ms Sinus rhythm with PVC Right bundle branch block Septal infarct , age undetermined Relatively unchanged from previous Confirmed by ELIANA HOLDEN ([id number]) on 10/15/2018 6:35:25 PM Referred By: BREA Confirmed By:ELIANA HOLDEN
[2018-10-15 09:43] VITALS: BP 133/82
--- NOTE | 2018-10-16 06:23 | ONCOLOGY CHEMO TEACHING ---
EVENT DATE: October 15, 2018 CHIEF COMPLAINT Patient is here today for chemotherapy teaching session for Xeloda. He is accompanied to the office by his . DIAGNOSIS Stage IIA adenocarcinoma of the colon, status post resection, T3, poorly differentiated. INTERIM HISTORY Mr. Baum is here today for followup and to initiate chemotherapy education session. He is accompanied to the office by his . He reports that since his last visit, he has been doing quite well. He is managing his ostomy well. He denies any changes in his health, to include no significant fevers or infections, no pain. His appetite is fairly good, and weight has been stable. Unfortunately, his mother did pass away last week, and her services are planned for this coming weekend. ONCOLOGY HISTORY Stage IIA colon adenocarcinoma, status post resection. * Initial presentation in August 2016 with constipation, abdominal distention and occasional nausea. * Initial CT imaging shows evidence of large stool burden. * Emergency Room presentation subsequently consistent with colonic obstruction, with dilated colon and mass in the descending colon. * September 13, 2018: Patient undergoes Bronwyn's procedure for resection of obstructing sigmoid mass. Pathology shows a moderately to poorly differentiated adenocarcinoma with tumor invading through muscularis purpura and into pericolonic tissues. Proximal, distal and mesenteric margins are uninvolved by tumor. Lymphovascular invasion was not identified. Perineural invasion was not identified. Tumor deposits were not identified. Zero of 7 lymph nodes involved. Pathologic staging pT3 pN0 cM0). Low probability for microsatellite instability. * September 14, 2018: CT chest shows small bilateral layering pleural effusions with compressive atelectasis as well as a 1.6 x 1.2 cm stellate area of consolidation in the inferior medial right upper lobe abutting the major fissure, which could represent an additional focus of atelectasis. Short-term imaging was recommended. PAST MEDICAL HISTORY The patient is otherwise healthy and active but does have a history of carpal tunnel syndrome, status post surgery in 2016. He also has a history of leg fracture in the 1970s. FAMILY HISTORY There is a history of Alzheimer dementia in his mother. There is a family history of malignancy with a reported history of colon cancer in his maternal grandmother and grandfather. There is a history of lung cancer in his father. SOCIAL HISTORY The patient works at the local [employer] and has been there for 38 years. He has never smoked cigarettes but he had chewed tobacco for 46 years, having quit in August. He is with two sons. ALLERGIES No known drug allergies. MEDICATIONS 1. Zofran p.r.n. 2. Hydrocodone/acetaminophen p.r.n. 3. Tamsulosin. 4. Capecitabine 1800 mg every 12 hours on days 1-14 on a 21-day cycle. PHYSICAL EXAMINATION VITAL SIGNS: T 98.2, P 67, R 16, BP 133/82, oxygen saturation 96% room air. DISCUSSION 1. A total of 60 minutes was spent in counseling today, 100% of which was face to face. At today's chemotherapy teaching session we discussed his diagnosis as well as the planned chemotherapy regimen and toxicities associated with capecitabine 1800 mg every 12 hours on days 1-14 on a 21-day cycle. Handouts of the drug were provided and reviewed in detail. 2. Side effects and toxicities of chemotherapy agents included, but were not limited to: A. Bone marrow suppression, specifically neutropenia. He is instructed to contact our offices with any signs of infection. CBC will be monitored routinely. We discussed common sense approaches including routine hand washing and avoidance of crowds/sick people if neutropenic. B. GI side effects. Discussed the possibility of nausea, vomiting, diarrhea and constipation. He will receive IV antiemetics and will be prescribed antiemetics for home use. If he were to have diarrhea, recommended Imodium. If he were to have constipation, recommended Senna-S or Miralax routinely. Further interventions will be made based on side effects. C. side effects. Discussed the importance of adequate hydration (minimum 8 cups of fluid per day) and emptying the bladder on a regular basis. IV hydration can be scheduled as needed. D. Mouth sores. Recommended salt water or baking soda gargles as needed. E. Skin toxicity. Discussed that chemotherapy was very drying to the skin and mucous membranes. Recommended routine moisturizing as well as sun protection. F. Neurotoxicity. Discussed symptoms of peripheral neuropathy. He will be monitored of these symptoms and will notify us if progressive. G. Alopecia. Discussed that hair thinning can occur. H. Fatigue. Discussed that this is one of the most common complaints of patients undergoing chemotherapy. I have encouraged him to remain as active as possible, taking frequent rests as needed. I. Infusion reaction. Reviewed IV premedications. He will be monitored closely during infusions. J. Reproductive Health: Discussed importance of preventing while on chemotherapy. Discussed control options and fertility preservation. Also, to abstain from sexual intercourse for 2-3 days after chemotherapy administration. 3. I have instructed the patient to call our office if he is prescribed any new medications. It is recommended that multiple supplements or herbal medications may not be taken as these may interfere with the action of the chemotherapy. 4. Discussed dietary issues associated with chemotherapy including anorexia and changes in taste. A handout of nutrition information is given. 5. Office contact information ([phone]) is given. I have encouraged the patient to call with any issues regarding treatment. 6. A tour of the infusion room is given. He is given a packet of information including all of the above. 7. As patient is preparing for services for his mother this weekend, he is concerned about starting treatment, since he wants to feel as best as he can for her services. I think this is completely reasonable, and as such, we will plan for him to initiate day 1 Cycle 1 with oral capecitabine next Monday, on 10/22/18. 8. He is aware that he will need to follow up with me for a one-week toxicity check, one week after initiating treatment. That will make that next visit to be due two weeks from now, or roughly around 10/29/18. 9. We reviewed his home antiemetics today. He was given Zofran and lorazepam to use p.r.n. at home, and we reviewed this at length and I have numbered each prescription bottle in order of which to take first if needed. 10. Patient brought in his prescription bottles today and reviewed all of them in person today. One of the bottles was mislabeled; the frequency was noted incorrectly. He is aware that it is a total of 1800 mg twice a day, though, and not once a day. 11. Labs were drawn today for baseline, and CBC was unremarkable. Vital signs today were normal. 12. Patient is aware that our plan is for three months of treatment or three cycles. 13. EKG is scheduled for later today as part of baseline. MTDD
[2018-11-01 13:08] VITALS: BP 135/79
[2018-11-01 14:03] LABS: PLATELET COUNT, AUTOMATED 289 K/uL (150-450)
--- NOTE | 2018-11-02 12:25 | ONCOLOGY FOLLOW UP NOTE ---
EVENT DATE: November 01, 2018 REASON FOR FOLLOWUP Stage IIA colon cancer, status post resection. INTERIM HISTORY Mr. Baum returns to clinic for a followup visit today. He is accompanied by his . He began adjuvant capecitabine monotherapy about two weeks ago and he reports that things have been going just fine in general. He reports being a little bit tired but this has been variable. He denies fever. He has had no nausea whatsoever. He denies abdominal pain and changes in bowel habits. He has had no new urinary symptoms. He does note that he had a little bit of metallic taste to his food yesterday and this morning. In general, he feels like he is tolerating chemotherapy without significant difficulty. REVIEW OF SYSTEMS Otherwise negative and all systems reviewed. ONCOLOGY HISTORY Stage IIA colon adenocarcinoma, status post resection. * Initial presentation in August 2016 with constipation, abdominal distention and occasional nausea. * Initial CT imaging shows evidence of large stool burden. * Emergency Room presentation subsequently consistent with colonic obstruction, with dilated colon and mass in the descending colon. * September 13, 2018: Patient undergoes Bronwyn's procedure for resection of obstructing sigmoid mass. Pathology shows a moderately to poorly differentiated adenocarcinoma with tumor invading through muscularis purpura and into pericolonic tissues. Proximal, distal and mesenteric margins are uninvolved by tumor. Lymphovascular invasion was not identified. Perineural invasion was not identified. Tumor deposits were not identified. Zero of 7 lymph nodes involved. Pathologic staging pT3 pN0 cM0). Low probability for microsatellite instability. * September 14, 2018: CT chest shows small bilateral layering pleural effusions with compressive atelectasis as well as a 1.6 x 1.2 cm stellate area of consolidation in the inferior medial right upper lobe abutting the major fissure, which could represent an additional focus of atelectasis. Short-term imaging was recommended. * October 22, 2018: Patient initiates adjuvant capecitabine. PAST MEDICAL HISTORY The patient is otherwise healthy and active but does have a history of carpal tunnel syndrome, status post surgery in 2016. He also has a history of leg fracture in the 1970s. CURRENT MEDICATIONS Zofran p.r.n., hydrocodone/acetaminophen p.r.n. and tamsulosin. ALLERGIES No known drug allergies. SOCIAL HISTORY The patient works at the local [employer] and has been there for 38 years. He has never smoked cigarettes but he had chewed tobacco for 46 years, having quit in August. He is with two sons. FAMILY HISTORY There is a history of Alzheimer dementia in his mother. There is a family history of malignancy with a reported history of colon cancer in his maternal grandmother and grandfather. There is a history of lung cancer in his father. VITAL SIGNS Temperature 98.2, blood pressure 135/79, heart rate 72, respirations 16, oxygen saturation 91% on room air, weight 157.8 pounds. PHYSICAL EXAMINATION GENERAL: Patient is alert and oriented x3, in no apparent distress, sitting in the exam room chair. He is interactive and very pleasant. HEENT: Anicteric sclerae. NEUROLOGIC: Grossly nonfocal. Gait is normal. EXTREMITY: No edema, clubbing or cyanosis. SKIN: No concerning rash or lesion. LABORATORY Reviewed per the [employer] record. IMAGING None today. ASSESSMENT AND PLAN Stage IIA colon adenocarcinoma. Joss is doing remarkably well. Both he and his are happy about lack of toxicity so far with adjuvant Xeloda. Fatigue and metallic taste of food have been his biggest complaint so far. He has no signs or symptoms to suggest recurrence of colon cancer. We reiterated our plan today to have him continue with three months of total adjuvant chemotherapy. He is taking time away from work and he is using that time to pay attention to his health, getting regular exercise and eating well. Joss and his had several additional questions for me today and I believe I answered all of their questions to their satisfaction. He will have followup here in one month or sooner if there are questions. ARIELLE
--- NOTE | 2018-11-06 09:18 | NUR ---
Pt completed initial HADS screen. Pt scored A:8, D:2. No concerns at this time. Will re-evaluate during the pt's treatment.
[2018-11-12 12:02] VITALS: BP 138/76
[2018-11-12 12:14] LABS: PLATELET COUNT, AUTOMATED 264 K/uL (150-450)
[~2018-12-03] VITALS: Ht 167.6 cm; Wt 72.9 kg
[2018-12-03 12:40] VITALS: BP 133/75
[2018-12-03 12:52] LABS: PLATELET COUNT, AUTOMATED 256 K/uL (150-450)
--- NOTE | 2018-12-04 16:23 | ONCOLOGY FOLLOW UP NOTE ---
EVENT DATE: December 03, 2018 CHIEF COMPLAINT Followup for stage IIA colon cancer. HISTORY OF PRESENT ILLNESS Patient is a 58-year-old male who was seen today in followup. He continues on adjuvant capecitabine monotherapy. He is tolerating this very well. He has had no issues with diarrhea, hand-foot syndrome, or mucositis. He has noted some fatigue, but remains very busy. His has also noted the increase in his strawberry angiomas, but otherwise, he has no new complaints. ONCOLOGY HISTORY Stage IIA colon adenocarcinoma, status post resection. a. Initial presentation in August 2016 with constipation, abdominal distention, and occasional nausea. b. Initial CT imaging shows evidence of large stool burden. c. Emergency room presentation subsequently consistent with colonic obstruction, with dilated colon and mass in the descending colon. d. September 13, 2018, patient undergoes Bronwyn procedure for resection of obstructing sigmoid mass. Pathology shows a moderately to poorly differentiated adenocarcinoma with tumor invading through muscularis purpura and into pericolonic tissues. Proximal, distal, and mesenteric margins are uninvolved by tumor. Lymphovascular invasion was not identified. Perineural invasion was not identified. Tumor deposits were not identified. Zero of seven lymph nodes involved. Pathologic staging pT3 pN0 cM0. Low probability for microsatellite instability. e. September 14, 2018, CT chest shows small bilateral layering pleural effusions with compressive atelectasis as well as a 1.6 x 1.2 cm stellate area of consolidation in the inferior medial right upper lobe abutting the major fissure, which could represent an additional focus of atelectasis. Short-term imaging was recommended. f. October 22, 2018, patient initiates adjuvant capecitabine. PAST MEDICAL HISTORY 1. Carpal tunnel syndrome. 2. Leg fracture, 1970s. 3. Stage IIA colon cancer, August 2016. SURGICAL HISTORY 1. Bronwyn procedure for resection of obstructing sigmoid mass, 09/13/18. 2. Carpal tunnel surgery, 2017. FAMILY HISTORY Colon cancer in his maternal grandmother and grandfather. Lung cancer in his father. Alzheimer's in his mother. No history of uterine or ovarian cancer. SOCIAL HISTORY Patient is . They have two grown sons. He works at the local [employer]. He never smoked cigarettes, but chewed tobacco for 46 years, quitting in August 2018. He drinks alcohol occasionally. MEDICATIONS 1. Capecitabine 1800 mg b.i.d. days 1-14 q.21 days. 2. Lorazepam p.r.n. 3. Zofran 8 mg p.r.n. 4. Prochlorperazine 10 mg p.r.n. ALLERGIES No known drug allergies. REVIEW OF SYSTEMS A 12-point review of systems is performed and is negative except as stated above. PHYSICAL EXAMINATION VITAL SIGNS: Weight 72.9 kg. BP 133/75, P 58, R 16, temp 97.4, O2 sat 95%. GENERAL: Patient is a well-developed, well-nourished male in no acute distress. HEAD: Normocephalic, atraumatic. EYES: Sclerae anicteric. MOUTH: Moist mucous membranes. NECK: Supple. No palpable adenopathy. LUNGS: Clear bilaterally. CARDIOVASCULAR: Heart rate regular, 58 per minute. ABDOMEN: Soft, nontender, with active bowel sounds. No organomegaly. Ostomy in left lower quadrant. EXTREMITIES: No edema. NEUROLOGIC: Nonfocal. LABORATORY CBC today reveals a WBC of 5.0, hemoglobin 16.2, hematocrit 46.2, platelets 256,000. CMP is within normal limits. IMPRESSION The patient is a 58-year-old male diagnosed with a stage IIA colon adenocarcinoma in August 2018. Underwent Bronwyn procedure for resection of the obstructing sigmoid mass. Began adjuvant capecitabine on 10/22/18. PLAN 1. Colon cancer. Continue capecitabine 1800 mg b.i.d. days 1-[address] Duran is planning three months of total treatment. He is tolerating this well and has no issues with diarrhea, mucositis, or hand-foot syndrome. 2. Ostomy. Patient is managing this well. He has had some issues fitting the appliance, but feels he has been able to take care of this. He is looking forward to the reversal. 3. Fatigue. Recommended continued activity. He has tried to remain as active as possible. 4. Follow up in three to four weeks for continued care. CBC and CMP will be drawn at that time. MTDD
== END 2018-12-17 ==
LOC: ONC 12:25
PROVIDERS: ATTEND Nurse Practitioner
DX: C18.6 Malignant neoplasm of descending colon (principal); Z87.891 Personal history of nicotine dependence; I45.10 Unspecified right bundle-branch block; I49.3 Ventricular premature depolarization; R53.83 Other fatigue
CPT/HCPCS: 36415; 82040; 82247; 82310; 82374; 82378; 82435; 82565; 82947; 83735; 84075; 84132; 84155; 84295; 84450; 84460; 84520; 85025; 85027; 93005; 99212

== ENCOUNTER → 2019-01-22 | Outpatient (CLI) | payer OTHER ==
[2018-09-12 15:30] VITALS: BMI 24.2
[~2019-01-22] MED LIST changes: +IOPAMIDOL 76% 100 ML INFUS BTL 100 ML ONE
--- NOTE | 2019-01-22 14:34 | RADIOLOGY IMAGING REPORT ---
[place] [facility] [place] Taurus Baum : 1960 MR: [id number] V: [id number] EXAM DATE: ORDERING PHYSICIAN: SUDHA POWELL TECHNOLOGIST: Location: [facility] Patient: Taurus Baum : 1960 Visit/Account:[id number] Date of Sevice: 01/22/2019 CT CHEST ABDOMEN PELVIS W/CON HISTORY: History of colon cancer ADDITIONAL HISTORY: None. TECHNIQUE: Pre and post administration of IV contrast axial images acquired through the chest abdome n and pelvis during the portal venous phase. Coronal and sagittal reformatting was also performed.Do se Lowering Technique One of the following dose optimization techniques was utilized in the performance of this exam: Autom ated exposure control; adjustment of the mA and/or kV according to the patient's size; or use of an i terative reconstruction technique. Specific details can be referenced in the facility's radiology C T exam operational policy. CONTRAST: 75 mL Isovue-370 COMPARISON: CT chest September 14, [address] abdomen pelvis September 11, 2018 FINDINGS: CHEST: Lungs/Pleura: The previously noted stellate lesion in the right upper lobe abutting the major fissur e has resolved in the interim and apparently represented atelectasis or infectious/inflammatory proce ss. Bilateral pleural effusions and compressive atelectasis lower lobes has also resolved. Calcifie d granuloma in the superior segment of the left lower lobe Mediastinum/lymph nodes: Negative. Heart/vessels: Negative. Bones/soft tissues: Negative ABDOMEN AND PELVIS: Hepatobiliary: Negative. Spleen: Negative. Pancreas: Negative. Adrenals: Negative. Kidneys ureters and bladder : Small hypodensity upper pole the right kidney is again noted Genitalia: Prostate gland is mildly enlarged depending upon the floor the bladder GI: There is an anastomosis in the proximal sigmoid colon. There is a descending colon ostomy in t he left mid abdomen Vessels/spaces/nodes: There are small shotty mesenteric lymph nodes Bones/soft tissues: There Is a small umbilical hernia containing fat. There are small bilateral ingu inal hernias containing fat Additional findings: None pertinent. IMPRESSION: The previously noted stellate lesion in the right upper lobe has resolved as have the bilateral pleur al effusions and compressive atelectasis lower lobes. Postsurgical changes from a descending colostomy in the left mid abdomen Small umbilical hernia containing fat and small bilateral inguinal hernias containing fat Report Dictated By: Marina Simms MD at 01/22/2019 2:12 PM Report E-Signed By: Marina Simms MD at 01/22/2019 2:25 PM WSN:[email or web address]
== END ==
LOC: CT 01:19
PROVIDERS: ATTEND Internal Medicine Medical Oncology
DX: K40.20 Bilateral inguinal hernia, without obstruction or gangrene, not specified as recurrent (principal); K42.9 Umbilical hernia without obstruction or gangrene
CPT/HCPCS: 71260; 74177; Q9967